=== PATIENT | female | born 1975 | race Caucasian/White ===

== ENCOUNTER 2016-08-21 16:24 | Inpatient (IN) ==
[2016-08-21] MEDS ORDERED: NS 1,000 ML IV ONE ×5 (16:40→21:55)
--- NOTE | 2016-08-21 16:59 | PROVIDER DOCUMENTATION ---
HPI-General Adult - General Chief Complaint: High Blood Sugar Stated Complaint: elevated blood sugar Time Seen by Provider: 08/21/16 16:39 Source: patient Allergies/Adverse Reactions: Patient Allergies Allergy/AdvReac Type Severity Reaction Status Date / Time cefaclor [From [facility]] Allergy VOMITING Verified 07/25/16 16:15 Home Medications: Home Medication List Medication Instructions Recorded Confirmed Last Taken Type Hydrocodone/Acetaminophen [Purdin 1 each PO BID 08/21/16 08/21/16 08/21/16 History 10-325 Tablet] Subcutaneous Insulin Pump [Insulin 1 each MC DAILY 08/21/16 08/21/16 08/21/16 History Pump] - History of Present Illness -Gen Adult Nature of Presenting Problems: Pt. is 40 yof that is a type I diabetic and reports her blood sugar has been high. Pt. reports she hasn't eaten since yesterday and that her glucometer read greater than 600. Pt. has an insulin pump and is still having trouble controlling her sugar. Pt. reports increased thirst and urination. Pt. reports this morning she was nauseated and dry heaving but didn't have anything to throw up. Pt. appears to be in mild distress and states her back hurts but reports chronic back pain for years. Pt. denies any other symptoms at time of exam. Location of Pain/Injury: reports: back. denies: head, face, mouth, neck, chest , upper extremity, hand(s), abdomen, pelvis, genitalia, lower extremity, feet, upper body, lower body, generalized Pain Radiation: reports: no radiation Quality of Pain: reports: aching. denies: burning, cramping, dull, fullness, indigestion, pressure, sharp, stabbing, tearing, throbbing, tightness Severity: reports: moderate. denies: mild, severe Onset/Duration: reports: gradual, other (Mulitple years) Timing: reports: still present. denies: improving, gone now, resolved prior to arrival, intermittent, constant, changing over time, getting worse Context/Activities at Onset: reports: none. denies: recent emotional stress, recent physical stress, recent trauma history, possible bad food, cold exposure , out of country travel Modifying Factors: improves with: nothing Associated Symptoms: reports: back/neck pain, fatigue, nausea, vomiting. denies : anxiety, arm pain, chest pain, constipation, cough, diaphoresis, diarrhea, dizziness, EENT symptoms, fever/chills, genitourinary problems, headaches, heartburn, joint pain, loss of appetite, malaise, muscle aches, sinus congestion /drainage, rash, seizure, shortness of breath, sensory/motor loss, pain with inspiration, swelling/mass in abdomen, syncope, weakness, trouble walking Similar Symptoms Previously?: Yes Recently seen or treated by another doctor?: No Review of Systems - Adult - REVIEW OF SYSTEMS - ADULT Constitutional: reports: fatique. denies: see HPI, chills, fever, night sweats Eyes: reports: see HPI. denies: discharge, blurred vision, double vision Ears, Nose, Mouth & Throat: reports: see HPI. denies: ear discharge, ear pain, hearing loss, sinus problem, nose pain, loose teeth, mouth/dental pain, throat pain, throat swelling Cardiovascular: reports: see HPI. denies: chest pain, irregular heart rate, orthopnea, palpitations, syncope Respiratory: reports: see HPI. denies: chronic cough, cough, dyspnea on exertion, hemoptysis, pleurisy, shortness of breath, wheezing Gastrointestinal: reports: see HPI, nausea, vomiting. denies: abdominal pain, hematemesis, diarrhea, difficulty swallowing, frequent heartburn Genitourinary: reports: see HPI, frequency. denies: dysuria, discharge, hematuria, hesitency, urgency Musculoskeletal: reports: see HPI, back pain. denies: bone pain, joint pain, joint swelling, muscle aches, neck pain Integumentary: reports: see HPI. denies: hives, itching, rash, skin thickening Neurological: reports: see HPI. denies: ataxia, headache/migraines, numbness, paresthesia, seizure, tremors Psychiatric: reports: see HPI. denies: anxiety, depression, emotional problems , insomnia, panic attacks, suicidal thoughts Endocrine: reports: see HPI, increased thirst, polyuria. denies: goiter, cold intolerance, heat intolerance Past History - Adult - PAST MEDICAL HISTORY-ADULT Review of Records: reports: Old Records Reviewed, Nursing Assessment Review, Medications Reviewed, Social history reviewed & non-contributory. - IMMUNIZATION STATUS Childhood Immunizations: See Nurse Assessment Flu Vaccine: See Nurse Assessment - FAMILY HISTORY Family History: reviewed, not pertinent - SOCIAL HISTORY Smoking: denies, cigarettes, greater than 1 pack/day Provider spent 3-5 mins advising pt. on dangers of tobacco.: Discussed the need to stop smoking. Physical Exam-General - PHYSICAL EXAM-ADULT Initial Vital Signs Reviewed: Yes - CONSTITUTIONAL General Appearance: alert, moderate distress, thin, lethargic. negative: obese , anxious, slow to respond, obtunded, combative - EYES Eyes: PERRL/EOMI, pink conjunctivae. negative: conjuctival exudate, scleral icterus, subconjunctival hemorrhage - HEAD, EARS, NOSE, MOUTH & THROAT HENMT: normocephalic/atraumatic, moist mucous membranes. negative: angioedema, frontal tenderness, maxillary tenderness - NECK Neck: non-tender, full range of motion, supple, normal inspection. negative: lymphadenopathy, trachial deviation, thyromegaly - RESPIRATORY Respiratory: lungs clear, normal breath sounds. negative: crackles, rales, rhonchi, stridor, wheezing - CARDIOVASCULAR Cardiovascular: regular rate, rhythm, no edema, no JVD, no murmur, tachycardia. negative: extra beats, friction rub, irregularly irregular - CHEST (BREASTS) Chest/Breast: deferred - GASTROINTESTINAL (ABDOMEN) Abdominal Exam: soft, abnormal bowel sounds (hypoactive). negative: distended, guarding, rigid, rebound, tenderness, hernia, mass - GENITOURINARY Female Genitalia/Pelvic Exam: deferred Rectal Exam: deferred Hemoccult Exam: deferred - LYMPHATIC Lymphatic: no adenopathy. negative: axilla node tender, cervical node tenderness - MUSCULOSKELETAL Back Exam: normal inspection, no CVA tenderness, no vertebral tenderness, muscle spasm. negative: decreased range of motion, ecchymosis, swelling Extremity: normal range of motion, non-tender, normal gait, normal inspection. negative: deformity, erythema, inflammation, swelling, tenderness Peripheral Pulses: radial (R): 2+, radial (L): 2+ - SKIN Integumentary: normal color, normal turgor, warm/dry. negative: cyanosis, diaphoresis, ecchymosis, erythema, jaundice, mottled, pallor, petechiae, purpura , rash, swelling, tenderness - NEUROLOGIC Neurologic: grossly normal, no motor/sensory deficits. negative: aphasia, facial droop, focal weakness, motor weakness, sensory deficit - PSYCHIATRIC Psych/Mental Status: normal mood/affect, normal thought content, normal thought process, oriented x 3. negative: anxious, paranoid, tearful Progress - PLAN OF CARE/RESULTS Progress/Plan/Lab Results: Discussed results and plan of care with patient. Patient agrees with plan and verbalizes understanding. Vital Signs Temp Pulse Resp BP Pulse Ox 08/21/16 16:29 97.6 F 119 H 18 145/83 99 cefaclor [From [facility]] Allergy (Verified 07/25/16 16:15) VOMITING Hydrocodone/Acetaminophen [Purdin 10-325 Tablet] 1 each PO BID 08/21/16 Subcutaneous Insulin Pump [Insulin Pump] 1 each MC DAILY 08/21/16 Laboratory 08/21/16 08/21/16 08/21/16 17:30 17:30 17:10 WBC 39.78 H RBC 4.95 Hgb 15.6 Hct 47.7 H MCV 96.4 MCH 31.5 H MCHC 32.7 L RDW Std Deviation 14.7 H Plt Count 589 H MPV 10.0 Immature Gran % (Auto) 2.2 H Neut % (Auto) 68.2 Lymph % (Auto) 21.7 [place] % (Auto) 6.4 Eos % (Auto) 0.4 Baso % (Auto) 1.1 H Immature Gran # (Auto) 0.89 H Neut # (Auto) 27.13 H Lymph # (Auto) 8.63 H [place] # (Auto) 2.56 H Eos # (Auto) 0.15 Baso # (Auto) 0.42 H Segmented Neutrophils 74 Band Neutrophils 2 H Lymphocytes 22 Eosinophils 1 Nucleated RBCs 7 H Pathologist Review Atypical Lymphocytes 1.0 Specimen Type ARTERIAL Sample Site R RADIAL pH 6.96 L* pCO2 17 L* pO2 118 H HCO3 4.0 L Base Excess -26.7 L Oxyhemoglobin 95.4 ABG O2 Sat (Calculated) 21.7 ABG O2 Saturation 99.7 ABG Carboxyhemoglobin 2.30 ABG Methemoglobin 2.0 H Gabriel Test YES A-a O2 Difference 10.0 Total Hemoglobin 16.1 Lactate 5.40 H* Blood Gas Modality ROOM AIR FiO2 % 21.0 Sodium 130 L Potassium 6.2 H* Chloride 85 L Carbon Dioxide 6 L Anion Gap 39 BUN 34 H Creatinine 1.5 H Estimated GFR/1.73 m2 39 BUN/Creatinine Ratio 23 Glucose 726 H* Calculated Osmolality 303 Calcium 9.9 Total Bilirubin 0.27 AST 31 H ALT 26 Alkaline Phosphatase 143 H Total Protein 8.1 Albumin 4.5 Globulin 3.6 Albumin/Globulin Ratio 1.3 Acetone Level SMALL A Orders Category Date Time Status ED: Urine Bedside ORDERED Care 08/21/16 16:39 Active Saline Loc NOW Care 08/21/16 16:39 Active ABG [RESP] Routine Lab 08/21/16 17:10 Completed ACETONE SERUM [CHEM] Stat Lab 08/21/16 17:30 Completed BLOOD CULTURE [BLDCUL] Stat Lab 08/21/16 18:10 Received CBC WITH ELECTRONIC DIFF [HEME] Stat Lab 08/21/16 17:30 Completed COMPREHENSIVE METABOLIC PANEL [CHEM] Stat Lab 08/21/16 17:30 Completed URINALYSIS W/POSS RFLX CULT [URINALYSIS] Stat Lab 08/21/16 16:39 Uncollected URINE DRUG SCREEN Stat Lab 08/21/16 16:52 Uncollected 0.9% Sodium Chloride Inj [Ns] 1,000 ml Med 08/21/16 16:40 Discontinued IV 999 mls/hr 0.9% Sodium Chloride Inj [Ns] 1,000 ml Med 08/21/16 16:52 Discontinued IV 999 mls/hr 0.9% Sodium Chloride Inj [Ns] 100 ml Med 08/21/16 18:30 Active Insulin Human Regular [Humulin R] 100 unit IV Per Protocol Insulin Human Regular [Humulin R] Med 08/21/16 17:33 Discontinued 10 unit IV NOW ONE EKG [EKG] Stat Ther 08/21/16 18:23 Ordered Laboratory Tests 08/21/16 08/21/16 08/21/16 17:10 17:30 17:30 WBC 39.78 H RBC 4.95 Hgb 15.6 Hct 47.7 H MCV 96.4 MCH 31.5 H MCHC 32.7 L RDW Std Deviation 14.7 H Plt Count 589 H MPV 10.0 Immature Gran % (Auto) 2.2 H Neut % (Auto) 68.2 Lymph % (Auto) 21.7 [place] % (Auto) 6.4 Eos % (Auto) 0.4 Baso % (Auto) 1.1 H Immature Gran # (Auto) 0.89 H Neut # (Auto) 27.13 H Lymph # (Auto) 8.63 H [place] # (Auto) 2.56 H Eos # (Auto) 0.15 Baso # (Auto) 0.42 H Segmented Neutrophils 74 Band Neutrophils 2 H Lymphocytes 22 Eosinophils 1 Nucleated RBCs 7 H Pathologist Review Atypical Lymphocytes 1.0 Specimen Type ARTERIAL Sample Site R RADIAL pH 6.96 L* pCO2 17 L* pO2 118 H HCO3 4.0 L Base Excess -26.7 L Oxyhemoglobin 95.4 ABG O2 Sat (Calculated) 21.7 ABG O2 Saturation 99.7 ABG Carboxyhemoglobin 2.30 ABG Methemoglobin 2.0 H Gabriel Test YES A-a O2 Difference 10.0 Total Hemoglobin 16.1 Lactate 5.40 H* Blood Gas Modality ROOM AIR FiO2 % 21.0 Sodium 130 L Potassium 6.2 H* Chloride 85 L Carbon Dioxide 6 L Anion Gap 39 BUN 34 H Creatinine 1.5 H Estimated GFR/1.73 m2 39 BUN/Creatinine Ratio 23 Glucose 726 H* Calculated Osmolality 303 Calcium 9.9 Total Bilirubin 0.27 AST 31 H ALT 26 Alkaline Phosphatase 143 H Total Protein 8.1 Albumin 4.5 Globulin 3.6 Albumin/Globulin Ratio 1.3 Acetone Level SMALL A - EKG 1 Time of EKG reading by physician:: 18:43 EKG Read and Signed by:: Rk Stokes EKG Interpretation (*Must complete 3 of following elements*): Abnormal Rate: 125 Rhythm: Sinus Tach Comments: Peaked T-Waves - CONSULTS/PCP/HOSPITALIST Notification #1 *Consult/PCP/Hospitalist*: Dr. Leach Time Discussed: 17:40 Reason/Comments: Admission Consult Disposition: other (States do not call him until a complete workup has been done. He will be glad to admit after the workup is complete.) #2 Consult: Dr. Cardoza Time Discussed: 19:59 Reason/Comments: Admission Consult Disposition: Admit Departure - Departure Time of Disposition Order: 17:35 DIAGNOSIS: DKA (diabetic ketoacidoses) Qualifiers: Diabetes mellitus type: type 1 Diabetes mellitus complication detail: without coma Qualified Code(s): E10.10 - Type 1 diabetes mellitus with ketoacidosis without coma Leukocytosis Qualifiers: Leukocytosis type: unspecified Qualified Code(s): D72.829 - Elevated white blood cell count, unspecified Disposition: ADMITTED INPATIENT 09 Certified Medical Emergency: Emergent Condition: Serious Referrals: Radha Atkinson MD [Primary Care Provider] - Attestation - Physician/ TARUN Attestation Patient care was provided by Advanced Practice Provider:: Yes Advanced Practice Provider:: Jasmin Rios Advanced Practice Provider documentation review:: The Mid-level provider documentation, treatment plan and medical decision making was reviewed by the physician who agrees with all treatment and medical decision making by the MLP.
[2016-08-21 17:21] LABS: ALLEN TEST YES; BE -26.7 mmoll (-3.0-3.0); BLOOD TYPE ARTERIAL; DRAW SITE R RADIAL; O2(CT) 21.7 mL/dL (15.0-23.0); PO2(98.6) 118 mmHg (60-100); SAMPLE BLOOD; SAO2 99.7 % (95.0-100.0); THB 16.1 g/dL (11.5-17.4)
[2016-08-21 17:23] LABS: MODALITY ROOM AIR
[2016-08-21 17:25] LABS: PCO2(98.6) 17 mmHg (35-45); pH(98.6) 6.96 (7.35-7.45)
[2016-08-21] MEDS ORDERED: HUMULIN R IV ONE ×2 (17:33→22:43)
[2016-08-21 17:58] LABS: BASO% 1.1 % (0.0-0.8); EOS# 0.15 X1000 (0.0-0.7); EOS% 0.4 % (0.0-10.0); HEMATOCRIT 47.7 % (37.0-47.0); HEMOGLOBIN 15.6 g/dL (12.0-16.0); IMM GRAN# 0.89 X1000 (0.0-0.04); IMM GRAN% 2.2 % (0.0-0.5); LYMPH# 8.63 X1000 (1.2-3.4); LYMPH% 21.7 % (20.5-51.1); MANUAL DIFF NEEDED? YES; MCH 31.5 PG (27-31); MCHC 32.7 g/dL (33-37); MCV 96.4 FL (81-99); MONO# 2.56 X1000 (0.11-0.59); MONO% 6.4 % (1.7-9.3); NEUT% 68.2 % (42.2-75.2); PLT 589 X1000 (130-400); RBC 4.95 XMIL (4.2-5.4)
[2016-08-21 18:03] LABS: ACETONE SERUM SMALL (NEGATIVE)
[2016-08-21 18:14] LABS: BANDS 2 % (0-1); EOS 1 % (1-10); LYMPHS 22 % (21-51); NRBC 7 % (0-0)
[2016-08-21 18:18] LABS: AGAP 39; ALBUMIN 4.5 g/dL (3.5-5.0); ALKALINE PHOSPHATASE 143 U/L (32-104); BUN 34 mg/dL (8-22); CALCIUM 9.9 mg/dL (8.8-10.2); CHLORIDE 85 mmol/L (98-107); COSMO 303; GOT 31 U/L (10-30); GPT 26 U/L (10-36); SODIUM 130 mmol/L (136-145); TCO2 6 mmol/L (25-35); TOTAL BILIRUBIN 0.27 mg/dL (0.20-1.00); TOTAL PROTEIN 8.1 g/dL (6.3-8.3)
[2016-08-21 18:21] LABS: POTASSIUM 6.2 mmol/L (3.5-5.1)
[2016-08-21] MEDS: HUMULIN R 100 UNIT in NS 100 ML IV SCH ×3 (18:50→21:25)
[2016-08-21 20:06] LABS: MAGNESIUM 2.7 mg/dL (1.5-2.7)
[2016-08-21 20:32] LABS: ALLEN TEST YES; BE -19.8 mmoll (-3.0-3.0); BLOOD TYPE ARTERIAL; DRAW SITE R RADIAL; METHB 1.7 % (0.0-1.5); O2(CT) 18.8 mL/dL (15.0-23.0); PO2(98.6) 79 mmHg (60-100); SAMPLE BLOOD; SAO2 99.1 % (95.0-100.0); THB 14.1 g/dL (11.5-17.4)
[2016-08-21 20:35] LABS: MODALITY ROOM AIR; PCO2(98.6) 19 mmHg (35-45); pH(98.6) 7.16 (7.35-7.45)
[2016-08-21 20:58] LABS: URINE CULTURE NEEDED? NO; URINE MICRO REVIEW NEEDED? NO; URINE SOURCE CATH
[2016-08-21 21:06] LABS: BILIRUBIN URINE NEGATIVE (NEGATIVE); BLOOD URINE SMALL (NEGATIVE); COLOR YELLOW; GLUCOSE URINE >1000 mg/dL (NEGATIVE); LEUKOCYTES URINE NEGATIVE (NEGATIVE); NITRITE URINE NEGATIVE (NEGATIVE); PROTEIN URINE 30 mg/dL (NEGATIVE); TURBIDITY URINE CLEAR (CLEAR); UR EPITHELIAL CELLS <10 /HPF (<10); URINE BACTERIA NEGATIVE /HPF; URINE RBC <10 /HPF (<10); URINE WBC <10 /HPF (<10); UROBILINOGEN URINE NORMAL (NORMAL)
[2016-08-21 21:15] LABS: UR AMPHETAMINES QUAL NONE DETECTED (NONE DETECT); UR BARBITUATES QUAL PRESUMPTIVE POSITIVE (NONE DETECT); UR BENZODIAZEPIN QUAL NONE DETECTED (NONE DETECT); UR CANNABINOIDS QUAL NONE DETECTED (NONE DETECT); UR COCAINE QUAL NONE DETECTED (NONE DETECT); UR METHADONE QUAL NONE DETECTED (NONE DETECT); UR OPIATES QUAL NONE DETECTED (NONE DETECT); UR OXYCODONE QUAL NONE DETECTED (NONE DETECT); UR PCP QUAL NONE DETECTED (NONE DETECT)
[2016-08-21] MEDS ORDERED: MORPHINE IV PRN (21:56)
[2016-08-21] MEDS ORDERED: TYLENOL PO PRN (21:56)
[2016-08-21] MEDS ORDERED: ZOFRAN IV PRN (21:56)
[2016-08-21 22:17] LABS: HEMOGLOBIN A1C 8.2 % (4.8-6.0)
[2016-08-21] MEDS: SODIUM CHLORIDE 0.9% INJ SCH (22:40)
[2016-08-21] MEDS: PROTONIX IV SCH (22:40)
[2016-08-21] MEDS ORDERED: POTASSIUM CHLORIDE 40 MEQ in NS 250 ML IV PRN (22:43)
[2016-08-21] MEDS ORDERED: D50W SYRINGE IV PRN (22:43)
[2016-08-21] MEDS ORDERED: MAGNESIUM SULFATE 2 GM/S.W.I. 50 ML IV PRN (22:43)
[2016-08-21] MEDS ORDERED: HUMULIN R 100 UNIT in NS 99 ML IV SCH (22:43)
[2016-08-21] MEDS ORDERED: SODIUM PHOSPHATE 30 MMOL in D5W 250 ML IV PRN (22:43)
[2016-08-22] MEDS: NS 1,000 ML IV SCH ×8 (00:08→23:07)
[2016-08-22] MEDS: D5 NS 1,000 ML IV SCH ×3 (00:11→16:47)
[2016-08-22 00:31] LABS: AGAP 23; BUN 26 mg/dL (8-22); CALCIUM 7.9 mg/dL (8.8-10.2); CHLORIDE 104 mmol/L (98-107); COSMO 287; POTASSIUM 4.7 mmol/L (3.5-5.1); SODIUM 138 mmol/L (136-145); TCO2 11 mmol/L (25-35)
[2016-08-22] MEDS: POTASSIUM CHLORIDE 20 MEQ in NS 100 ML IV PRN ×3 (00:48→23:42)
--- NOTE | 2016-08-22 02:09 | HISTORY AND PHYSICAL ---
PRIMARY CARE PROVIDER: DATE AND TIME OF HISTORY AND PHYSICAL: August 21, 2016 at 2045. CHIEF COMPLAINT: Elevated blood sugar. HISTORY OF PRESENT ILLNESS: Ms. Phani Murillo is a 40-year-old female with a history of diabetes mellitus type 1 who currently receives insulin therapy via an insulin pump and multiple sclerosis. She reports that her sugars have been elevated for the past few days starting yesterday. She has no appetite and has not eaten anything since yesterday afternoon. Patient reports this morning that she woke up feeling worse. She did have some nausea, vomiting, as well as her fingerstick blood sugar on her glucometer at home was greater than 600. Her father, who is at bedside, also reported that prior to the patient's arrival to the hospital that she did have some period of confusion as well. Upon arrival to the ER, the patient's serum glucose was 726, bicarbonate was 6, anion gap was 39. Her blood gases did show a pH of 6.9 with a CO2 of 17 and a bicarbonate of 4. She also did have an elevated white blood cell count of 39.78. The patient was given 10 units of insulin IV push as well as placed on an insulin drip in the ER and the DKA protocol was implemented. Since her arrival to the ER, upon my examination the patient was alert and oriented to person, place, time, and situation. She also reports that she does feel better than she did upon her arrival. She denies any headache or dizziness, chest pain, shortness of breath, abdominal pain, diarrhea, dysuria, though does report increased urinary frequency. She also reported increased thirst as well. She denies any pain, numbness or tingling in her extremities though she does report some low back pain though this is not of new onset and is chronic for which she sees a pain clinic for and receives Rodanthe as needed for pain. She also denies any cough, fever, or chills. At this time, the patient will be admitted to the ICU for further treatment of her DKA. REVIEW OF SYSTEMS: A 14-point review of systems was conducted with the patient and all were negative except for pertinent positives mentioned in above HPI. PAST MEDICAL HISTORY: 1. Diabetes mellitus type 1, currently on insulin pump therapy. 2. Fibromyalgia. 3. Multiple sclerosis. 4. Chronic low back pain. PAST SURGICAL HISTORY: 1. Surgery on bilateral hands for carpal tunnel. 2. Bilateral arthroscopies of her knees. SOCIAL HISTORY: Patient reports that she is still a current everyday smoker and smokes approximately a half a pack of cigarettes per day. She denies any alcohol or illicit drug use. FAMILY HISTORY: Positive for heart disease in her father with recent UT approximately 3 years. Her mother also has a history of diabetes mellitus type 1. ALLERGIES: Patient reports allergies to cefaclor though reports this only makes her nauseated. No other allergic symptoms reported. HOME MEDICATIONS: 1. Subcutaneous insulin pump as directed. 2. Rodanthe 10 one tablet p.o. twice daily for pain. DIAGNOSTIC DATA: Laboratory results: White blood cell count 39.7, hemoglobin 15.6, hematocrit 47.7, platelet count 589. Sodium 130. Potassium 6.2. Chloride 85. Bicarbonate 6. Anion gap is 39. BUN 34. Creatinine 1.5. GFR 39. Glucose 726. Hemoglobin A1c 8.2. Calcium 9.9. Phosphorus 8.2. Magnesium 2.7. Total bilirubin of 0.27. AST 31. ALT 26. Alkaline phosphatase 143. Arterial blood gases were obtained on room air: pH of 6.96, pCO2 of 17, pO2 118, HCO3 was 4, base excess was negative 26.7, O2 saturation was 99.7, plasma lactate was 5.4. Urinalysis was obtained, was positive for protein, greater than 1000 glucose, small ketones, and a small amount of blood though it was otherwise within normal limits. A urine drug screen was positive for barbiturates. EKG showed sinus tachycardia with a short P-R, with frequent premature ventricular complexes and a right bundle-branch block. Heart rate was 160, QTc was 587. Pending diagnostic studies at this time are chest x-ray and blood cultures. PHYSICAL EXAMINATION: VITAL SIGNS: Temperature 97, heart rate 117, respirations 15, blood pressure is 127/90, oxygen saturation is 99% room air. GENERAL: Ms. Murillo is an ill-appearing 40-year-old female who is resting in the ER stretcher. Upon my exam she was not in any acute distress. She was awake, alert, and able to answer all questions appropriately. HEENT: Head is atraumatic, normocephalic. Pupils are equal, round, reactive to light, are 3 mm bilaterally and brisk. Subconjunctivae are pink. Oral mucosa was slightly dry. NECK: Supple. Trachea is midline. CARDIOVASCULAR: Patient has a normal S1, S2. No murmurs, gallops, or rubs appreciated with a tachycardic rate that is regular. PULMONARY: Patient has symmetrical chest expansion bilaterally. Lung sounds are clear to auscultation in bilateral full carrizales. ABDOMEN: Soft, nontender, nondistended. Bowel sounds are present in all 4 quadrants. EXTREMITIES: No cyanosis, clubbing, or edema noted. Pulse, motor, and sensory were intact in all extremities as well. Pedal pulses as well as radial pulses were 3 plus bilaterally. INTEGUMENTARY: The patient's skin color is slightly pale, is warm, dry, and intact. No lesions or sores noted. NEUROLOGICAL: Patient is alert and oriented to person, place, time, situation. Cranial nerves II through XII are grossly intact. ASSESSMENT AND PLAN: 1. Diabetic ketoacidosis. For this, we will implement the DKA protocol. The patient will be given a total of 3 L normal saline bolus and we will continue normal saline at 250 mL per hour for volume depletion. We will do q.4 hour BMP, phosphorus, and magnesium as well as arterial blood gases, and we will monitor her respiratory and cardiovascular status closely and also closely monitor her electrolytes. She has been placed on the insulin drip per protocol as well. 2. Nausea, vomiting. For this, we will give the patient Zofran as needed. 3. Leukocytosis. This could be reactive though we have obtained blood cultures and we will place her on a broad spectrum antibiotic until blood culture results have returned and continue to rule out any other etiology. 4. Acute kidney injury. We will continue with above mentioned fluid resuscitation per number 1. Avoid nephrotoxic medications and renally dose medications as necessary and repeat a BMP in the morning. 5. Chronic pain. Given that the patient has had some nausea and vomiting, we will hold her oral Rodanthe at this time and we will give her morphine 2 mg q.3 hours as needed for pain. Patient will be placed in the ICU. We will do q.1 hour vitals, do strict intake and output. She will have q.1 hour fingersticks, q.2 hour neurological checks. She will be on diabetic clear liquids diet. We will repeat her CBC in the morning. DVT prophylaxis will be provided with SCDs. GI prophylaxis will be provided with Protonix 40 mg IV q.24 hours and we will closely monitor her condition. Further orders and recommendations pending hospital course, diagnostic studies, and physician evaluation. TIME: Critical care time with this patient was approximately 45 minutes. Dictated by LESLY Sutton for Misha Cardoza MD
[2016-08-22] MEDS: LEVAQUIN 750 MG in NS 150 ML IV SCH (03:07)
[2016-08-22 04:43] LABS: ALLEN TEST YES; BE -11.4 mmoll (-3.0-3.0); BLOOD TYPE ARTERIAL; DRAW SITE R RADIAL; METHB 1.6 % (0.0-1.5); O2(CT) 20.9 mL/dL (15.0-23.0); PCO2(98.6) 27 mmHg (35-45); PO2(98.6) 92 mmHg (60-100); SAMPLE BLOOD; SAO2 99.6 % (95.0-100.0); THB 15.4 g/dL (11.5-17.4)
[2016-08-22 04:44] LABS: MODALITY ROOM AIR
[2016-08-22 05:38] LABS: BASO% 0.3 % (0.0-0.8); EOS# 0.01 X1000 (0.0-0.7); HEMATOCRIT 37.3 % (37.0-47.0); HEMOGLOBIN 12.7 g/dL (12.0-16.0); IMM GRAN# 0.37 X1000 (0.0-0.04); IMM GRAN% 1.3 % (0.0-0.5); LYMPH% 21.4 % (20.5-51.1); MANUAL DIFF NEEDED? YES; MCH 31.4 PG (27-31); MCV 92.1 FL (81-99); MONO# 2.18 X1000 (0.11-0.59); MONO% 7.5 % (1.7-9.3); MPV 9.7 FL (7.4-10.4); NEUT% 69.5 % (42.2-75.2); PLT 409 X1000 (130-400); RBC 4.05 XMIL (4.2-5.4)
--- NOTE | 2016-08-22 05:50 | EKG Report ---
Test Performed on : 08/21/2016 6:56:33 PM Test Reason : Elevated potassium Blood Pressure : / mmHG Vent. Rate : 160 BPM Atrial Rate : 125 BPM P-R Int : 094 ms QRS Dur : 126 ms QT Int : 360 ms P-R-T Axes : 075 090 050 degrees QTc Int : 587 ms Sinus tachycardia. with short OH with frequent premature ventricular complexes. Right bundle branch block Cannot rule out Inferior infarct , age undetermined Abnormal ECG No previous ECGs available Unconfirmed Result
[2016-08-22 05:55] LABS: MAGNESIUM 1.9 mg/dL (1.5-2.7)
--- NOTE | 2016-08-22 06:27 | Diag Imaging Result Document ---
PROCEDURE NAME: CHEST-PORTABLE - 08/22/2016 PORTABLE CHEST: COMPARISON: No comparison films. FINDINGS: The lungs are well expanded. The heart is not enlarged. The vessels are not distended. No consolidation. No pleural effusions identified. IMPRESSION: Negative chest.
[2016-08-22 06:30] LABS: AGAP 20; BUN 17 mg/dL (8-22); CHLORIDE 107 mmol/L (98-107); COSMO 286; POTASSIUM 4.4 mmol/L (3.5-5.1); SODIUM 139 mmol/L (136-145); TCO2 12 mmol/L (25-35)
--- NOTE | 2016-08-22 06:41 | Diag Imaging Result Document ---
PROCEDURE NAME: HEAD W/O CONTRAST - 08/22/2016 CT BRAIN WITHOUT CONTRAST: TECHNIQUE: Dose-reduction protocol. FINDINGS: No parenchymal hemorrhage. No epidural or subdural hematoma. No subarachnoid hemorrhage. There are chronic microvascular ischemic changes most pronounced in the parietal lobes. No hydrocephalus. No mass identified on this noncontrasted study. No sinus opacification. No air fluid levels. IMPRESSION: 1. No hemorrhage. 2. There are at least moderate chronic microvascular ischemic changes primarily in the parietal lobes. A preliminary report was given at 6:29 a.m.
[2016-08-22 07:10] LABS: BANDS 4 % (0-1); LYMPHS 26 % (21-51); MONO 12 % (1-9)
[2016-08-22 09:09] LABS: ALLEN TEST YES; BE -7.8 mmoll (-3.0-3.0); BLOOD TYPE ARTERIAL; DRAW SITE R RADIAL; METHB 1.9 % (0.0-1.5); PCO2(98.6) 27 mmHg (35-45); PO2(98.6) 93 mmHg (60-100); SAMPLE BLOOD; SAO2 99.1 % (95.0-100.0); THB 11.8 g/dL (11.5-17.4); pH(98.6) 7.38 (7.35-7.45)
[2016-08-22 09:42] LABS: MAGNESIUM 1.9 mg/dL (1.5-2.7)
[2016-08-22 10:01] LABS: AGAP 15; BUN 14 mg/dL (8-22); CALCIUM 7.9 mg/dL (8.8-10.2); CHLORIDE 110 mmol/L (98-107); COSMO 288; POTASSIUM 4.4 mmol/L (3.5-5.1); SODIUM 141 mmol/L (136-145); TCO2 16 mmol/L (25-35)
--- NOTE | 2016-08-22 11:49 | PROGRESS NOTE ---
DATE: 08/22/2016 SUBJECTIVE: The patient is feeling much better. No nausea, no vomiting. She does not appear to be very well versed with her insulin pump. She could not tell him what her basal rate was that she was using at home. Father was at the bedside. All questions were invited and entertained. OBJECTIVE: Vital signs: Blood pressure 133/84, pulse of 105, respirations of 15, temperature 97.9 degrees, T-max 97.8 degrees, satting 100% on room air. General appearance: Well- developed, thin white female in no acute distress. HEENT: Anicteric sclerae. Clear conjunctivae. Neck: Supple. No JVD. No bruit. Cardiovascular: S1, S2. Normal rate and rhythm. No murmur, rubs, or gallops. Pulmonary: Clear to auscultation bilaterally. GI: Soft, nontender, nondistended. Normoactive bowel sounds. Musculoskeletal: No clubbing, cyanosis, or edema. LABORATORY AND X-RAYS: Her white count 29, hemoglobin 12.7, hematocrit of 37.3, platelets of 409. Chemistry: Sodium 141, potassium 4.4, chloride 110, bicarbonate 16. BUN of 14, creatinine 0.8. Glucose of 208. A CAT scan of the brain was negative for any acute process. Chest x-ray was normal. ASSESSMENT AND PLAN: This is a 40-year-old, white female with history of type 1 diabetes and multiple sclerosis, who presented to the emergency room with nausea and vomiting. She was found to have diabetic ketoacidosis. 1. Diabetic ketoacidosis: The patient is on diabetic ketoacidotic protocol. Her gap is still wide. Will continue to monitor her gap and we will continue insulin drips. Start the patient on a diet since she is tolerating the diet well. We will consult diabetic education to teach her how to use the insulin pump appropriately. There may be a disconnect between the patient able to use the insulin and the basal rate as she is supposed to. 2. Electrolyte abnormality: We will continue to replete her electrolytes. 3. Leukocytosis: Probably respond to her acute illness due to diabetic ketoacidosis. 4. Deep vein thrombosis prophylaxis: We will start the patient on Lovenox. 5. Code status: The patient is a full code.
[2016-08-22] MEDS: NICODERM PATCH TD SCH (14:34)
[2016-08-22 15:37] LABS: AGAP 13; BUN 12 mg/dL (8-22); CHLORIDE 106 mmol/L (98-107); COSMO 280; POTASSIUM 3.8 mmol/L (3.5-5.1); SODIUM 137 mmol/L (136-145); TCO2 18 mmol/L (25-35)
[2016-08-22 17:36] LABS: AGAP 14; BUN 10 mg/dL (8-22); CALCIUM 7.9 mg/dL (8.8-10.2); CHLORIDE 106 mmol/L (98-107); COSMO 281; POTASSIUM 3.6 mmol/L (3.5-5.1); SODIUM 139 mmol/L (136-145); TCO2 19 mmol/L (25-35)
[2016-08-22] MEDS: PROTONIX IV SCH (22:06)
[2016-08-22 22:11] LABS: AGAP 16; BUN 8 mg/dL (8-22); CALCIUM 7.8 mg/dL (8.8-10.2); CHLORIDE 107 mmol/L (98-107); COSMO 285; POTASSIUM 3.5 mmol/L (3.5-5.1); SODIUM 141 mmol/L (136-145); TCO2 18 mmol/L (25-35)
[2016-08-22 22:21] LABS: MAGNESIUM 1.9 mg/dL (1.5-2.7)
[2016-08-23] MEDS ORDERED: NS 1,000 ML ONE (00:36)
[2016-08-23] MEDS: NS 1,000 ML IV SCH ×4 (00:38→20:48)
[2016-08-23] MEDS: HUMULIN R SUBQ SCH ×6 (00:40→20:48)
[2016-08-23] MEDS: LEVAQUIN 750 MG in NS 150 ML IV SCH (02:13)
[2016-08-23 06:28] LABS: MAGNESIUM 1.8 mg/dL (1.5-2.7)
[2016-08-23 06:31] LABS: AGAP 12; BUN 4 mg/dL (8-22); CALCIUM 7.7 mg/dL (8.8-10.2); CHLORIDE 111 mmol/L (98-107); COSMO 284; POTASSIUM 3.4 mmol/L (3.5-5.1); SODIUM 143 mmol/L (136-145); TCO2 20 mmol/L (25-35)
[2016-08-23 07:33] LABS: BASO% 0.2 % (0.0-0.8); EOS# 0.07 X1000 (0.0-0.7); EOS% 0.4 % (0.0-10.0); HEMATOCRIT 33.2 % (37.0-47.0); HEMOGLOBIN 11.5 g/dL (12.0-16.0); IMM GRAN# 0.17 X1000 (0.0-0.04); LYMPH# 6.26 X1000 (1.2-3.4); LYMPH% 36.1 % (20.5-51.1); MANUAL DIFF NEEDED? YES; MCH 31.4 PG (27-31); MCHC 34.6 g/dL (33-37); MCV 90.7 FL (81-99); MONO# 1.55 X1000 (0.11-0.59); MONO% 8.9 % (1.7-9.3); MPV 9.6 FL (7.4-10.4); NEUT% 53.4 % (42.2-75.2); PLT 277 X1000 (130-400); RBC 3.66 XMIL (4.2-5.4)
[2016-08-23 07:58] LABS: BANDS 6 % (0-1); LYMPHS 38 % (21-51); MONO 8 % (1-9)
[2016-08-23] MEDS: LOVENOX SUBQ SCH (09:14)
[2016-08-23] MEDS: NICODERM PATCH TD SCH (09:14)
--- NOTE | 2016-08-23 12:39 | PROGRESS NOTE ---
DATE: 08/23/2016 SUBJECTIVE: The patient is doing well. She denies having any fever or chills. She denies having any nausea, vomiting, or diarrhea. Able to tolerate p.o. without any difficulty. No acute event reported by the overnight staff. OBJECTIVE: Vital signs: Blood pressure 137/80, pulse of 86, respirations 20, temperature 98.7 degrees, saturation of 99% on room air. General appearance: Well-developed, well-nourished white female in no acute distress. HEENT: Anicteric. Clear conjunctivae. Neck: Supple. No JVD. No bruit. Cardiovascular: S1 and S2. Normal rate and rhythm. No murmur, rubs, or gallops. Pulmonary: Clear to auscultation bilaterally. Gastrointestinal: Soft, nontender, nondistended. Normoactive bowel sounds. Musculoskeletal: No clubbing, cyanosis, or edema. LABORATORIES: White count 17, hemoglobin 11.5, hematocrit of 33.2, platelets 277,000. Chemistries: Sodium 143, potassium 3.4, chloride 111, bicarbonate 20, BUN 4, creatinine 0.6, glucose 128. ASSESSMENT AND PLAN: This is a 40-year-old white female with type 1 diabetes, admitted to the hospital for diabetic ketoacidosis. 1. Diabetic ketoacidosis. Her gap has been closed. She was transitioned to sliding scale insulin overnight. She needs her basal insulin at about 1.15 units/hour. We will restart her back on her basal insulin and we will continue sliding scale insulin per our protocol, but she can use her insulin pump to cover it. 2. Leukocytosis, probably secondary to demargination due to the acute illness of diabetic ketoacidosis, is much improved. We will keep the patient on the antibiotics for now. We will probably stop the antibiotics tomorrow if her culture remains negative. 3. Deep vein thrombosis prophylaxis. The patient is on Lovenox number. 4. Code Status: The patient is a full code. 5. Tobacco abuse. Education provided. 6. We transferred the patient to the medical floor.
[2016-08-23] MEDS: PATIENT'S OWN MED SUBQ SCH (13:42)
[2016-08-23] MEDS: NORCO-10 PO SCH ×2 (14:03→20:47)
[2016-08-23] MEDS: SODIUM CHLORIDE 0.9% INJ SCH (20:48)
[2016-08-23] MEDS: PROTONIX IV SCH ×2 (20:48→21:18)
[2016-08-24] MEDS: HUMULIN R SUBQ SCH ×5 (01:19→11:35)
[2016-08-24] MEDS: LEVAQUIN 750 MG in NS 150 ML IV SCH (03:55)
[2016-08-24 06:10] LABS: MANUAL DIFF NEEDED? NO
[2016-08-24 06:29] LABS: AGAP 14; BUN 7 mg/dL (8-22); CALCIUM 7.8 mg/dL (8.8-10.2); CHLORIDE 106 mmol/L (98-107); COSMO 282; POTASSIUM 4.2 mmol/L (3.5-5.1); SODIUM 140 mmol/L (136-145); TCO2 20 mmol/L (25-35)
[2016-08-24] MEDS: NS 1,000 ML IV SCH (06:30)
[2016-08-24 06:33] LABS: BASO% 0.4 % (0.0-0.8); EOS% 2.2 % (0.0-10.0); HEMATOCRIT 34.1 % (37.0-47.0); HEMOGLOBIN 11.5 g/dL (12.0-16.0); IMM GRAN# 0.03 X1000 (0.0-0.04); IMM GRAN% 0.3 % (0.0-0.5); LYMPH# 4.85 X1000 (1.2-3.4); LYMPH% 52.2 % (20.5-51.1); MCH 31.3 PG (27-31); MCHC 33.7 g/dL (33-37); MCV 92.9 FL (81-99); MONO# 0.83 X1000 (0.11-0.59); MONO% 8.9 % (1.7-9.3); MPV 9.7 FL (7.4-10.4); PLT 243 X1000 (130-400); RBC 3.67 XMIL (4.2-5.4)
[2016-08-24] MEDS: NORCO-10 PO SCH (08:37)
[2016-08-24] MEDS: NICODERM PATCH TD SCH (08:37)
[2016-08-24] MEDS: LOVENOX SUBQ SCH (08:38)
[2016-08-24] MEDS: PATIENT'S OWN MED SUBQ SCH (11:30)
[2016-08-24 12:26] VITALS: BP 154/86
--- NOTE | 2016-08-24 18:05 | DISCHARGE SUMMARY ---
ADMISSION DATE: 08/21/2016 DISCHARGE DATE: 08/24/2016 PRIMARY CARE PHYSICIAN: Dr. Radha Atkinson. DISCHARGE DIAGNOSES: 1. Diabetic ketoacidosis. 2. Type 1 diabetes. 3. Tobacco abuse. DISCHARGE MEDICATIONS: 1. Insulin pump, her basal rate is at 1.15 units/hour, and the patient has a scale that she follows where she calculates her carbs and gives her insulin p.r.n. accordingly before meal. 2. Continue her Breda. 3. Continue Adderall. 4. Continue her Neurontin. 5. Resume her Adderall. CONSULTATION: None. PROCEDURES: None. SIGNIFICANT LABORATORY AND IMAGING: On discharge her white count 9.29, hemoglobin 11.5, hematocrit of 34.1, platelets 243,000. Sodium 140, potassium 4.2, chloride 106, bicarb 20, BUN 7, creatinine 0.5, glucose 190. HOSPITAL COURSE: The patient is a 40-year-old, white female admitted to the hospital for hyperglycemia and diabetic ketoacidosis. The patient has had diabetes since she was 20 years old, and had been on the insulin pump recently. The patient stated that she started having polydipsia and polyuria and presented to the emergency room and was found to have a wide anion gap. She was admitted to the ICU and started on the insulin drip protocol for her diabetic ketoacidosis. The patient has remained in the ICU for about 36 hours. Her gap was closed. We transitioned her to the floor, where we continued her basal insulin and sliding scale insulin. We taught the patient how to use the insulin pump to make sure she is very well versed with the machine. So far she is doing well from that standpoint. We will discharge the patient home and resume her basal insulin as stated above and her bolus insulin per her intake. Overall she is doing well. We will discharge the patient back to home today. PHYSICAL EXAMINATION AT DISCHARGE: Vital Signs: Blood pressure 154/86, pulse of 84, respirations 16, temperature 98.6 degrees, saturation of 99% on room air. General appearance: Well developed, well nourished, white female in no acute distress. HEENT: Anicteric. Clear conjunctivae. Neck: Supple. No JVD. No bruits. Cardiovascular: S1, S2. Normal rate and rhythm. No murmur, rubs, or gallops. Pulmonary: Clear to auscultation bilaterally. GI: Soft, nontender, nondistended. Normoactive bowel sounds. Musculoskeletal: No clubbing, cyanosis, or edema. PLAN: We will discharge the patient home. CONDITION: Stable and improving. ACTIVITY: As tolerated. FOLLOWUP: The patient is to follow up with her PCP in 1-2 weeks. Total time discharging this patient is 35 minutes.
== END 2016-08-24 14:37 | disposition home or self-care (01) | DRG 638 ==
LOC: ED 16:24 → ICU 16:25 → 4N 08-23 09:58
PROVIDERS: ATTEND Internal Medicine
DX: E10.10 Type 1 diabetes mellitus with ketoacidosis without coma (principal); N17.9 Acute kidney failure, unspecified; G35 Multiple sclerosis; D72.829 Elevated white blood cell count, unspecified; M79.7 Fibromyalgia; F17.210 Nicotine dependence, cigarettes, uncomplicated; Z96.41 Presence of insulin pump (external) (internal); Z82.49 Family history of ischemic heart disease and other diseases of the circulatory system; Z83.3 Family history of diabetes mellitus
CPT/HCPCS: 70450; 71010; 80048; 80053; 81001; 81025; 82009; 82805; 82948; 83036; 83735; 84100; 85025; 87040; 93005; 94799; 96361; 96365; 96366; C9113; G0480; J1650; J2270; J3480; J7030; J7042; J7060; P9612; 80324; 80345; 80346; 80349; 80353; 80358; 80361; 80365; 83992; S0164

== ENCOUNTER 2016-08-27 16:51 | Inpatient (IN) ==
[2016-08-27 17:11] LABS: MANUAL DIFF NEEDED? NO
[2016-08-27 17:15] LABS: BASO% 0.7 % (0.0-0.8); EOS# 0.31 X1000 (0.0-0.7); EOS% 2.3 % (0.0-10.0); HEMATOCRIT 40.7 % (37.0-47.0); HEMOGLOBIN 13.4 g/dL (12.0-16.0); IMM GRAN# 0.14 X1000 (0.0-0.04); LYMPH# 4.82 X1000 (1.2-3.4); LYMPH% 35.7 % (20.5-51.1); MCH 31.3 PG (27-31); MCHC 32.9 g/dL (33-37); MCV 95.1 FL (81-99); MONO# 1.01 X1000 (0.11-0.59); MONO% 7.5 % (1.7-9.3); MPV 9.9 FL (7.4-10.4); NEUT% 52.8 % (42.2-75.2); PLT 340 X1000 (130-400); RBC 4.28 XMIL (4.2-5.4)
[2016-08-27] MEDS ORDERED: NS 1,000 ML IV ONE ×2 (17:28→19:20)
--- NOTE | 2016-08-27 17:33 | PROVIDER DOCUMENTATION ---
HPI-General Adult - General Source: patient - History of Present Illness -Gen Adult Nature of Presenting Problems: REPORTS SHE IS A TYPE 1 DIABETIC THAT HAS HAD AN INSULIN PUMP FOR PAST 2-3 MONTHS AND STATES SHE WAS AT HER PCP OFFICE TODAY WHEN THEY DOWNLOADED INFORMATION OFF PUMP AND NOTICED IT QUIT WORKING. PT BS IN OFFICE WAS GREATER THAN 550 AND WAS TOLD TO COME TO ER. PT ALSO REPORTS SHE WAS ADMITTED LAST FRIDAY AND DISCHARGED ON FRIDAY FOR DKA. PT DENIES ABD PAIN,N,.V,SWEATING, INCREASED HUNGER OR THIRST. DOES REPORTS KETONE IN URINE. RECEIVED 21 UNITS OF REGULAR INSULIN AT PCP OFFICE 15 MINUTES TILL 1700 AT TRIAGE BS 475. Location of Pain/Injury: reports: none Quality of Pain: reports: none Severity: reports: moderate Onset/Duration: reports: this afternoon Timing: reports: still present Similar Symptoms Previously?: Yes Recently seen or treated by another doctor?: Yes - Diabetes Related Context Context: reports: high blood sugar, prior DKA hospitalization <Alfa Souza - Last Filed: 08/27/16 17:28> <Pari Damon - Last Filed: 08/27/16 19:21> - General Chief Complaint: High Blood Sugar Stated Complaint: IN DKA Time Seen by Provider: 08/27/16 17:19 Allergies/Adverse Reactions: Patient Allergies Allergy/AdvReac Type Severity Reaction Status Date / Time cefaclor [From Ceclor] Allergy Unknown Unknown Verified 08/27/16 18:10 Home Medications: Home Medication List Medication Instructions Recorded Confirmed Last Taken Type Hydrocodone/Acetaminophen [[employer] 1 each PO TID 08/21/16 08/27/16 08/27/16 History 10-325 Tablet] Subcutaneous Insulin Pump [Insulin 1 each MC DAILY 08/21/16 08/27/16 08/27/16 History Pump] Gabapentin [Neurontin] 100 mg PO QHS 08/27/16 08/27/16 08/26/16 History Review of Systems - Adult - REVIEW OF SYSTEMS - ADULT Constitutional: reports: see HPI. denies: chills, fever, fatique Eyes: reports: no symptoms reported Ears, Nose, Mouth & Throat: reports: no symptoms reported Cardiovascular: reports: see HPI. denies: chest pain, irregular heart rate, orthopnea, syncope Respiratory: reports: no symptoms reported Gastrointestinal: reports: no symptoms reported Genitourinary: reports: see HPI. denies: dysuria, discharge, hematuria, urinary retention, urgency Musculoskeletal: reports: no symptoms reported Integumentary: reports: no symptoms reported Neurological: reports: no symptoms reported Psychiatric: reports: no symptoms reported Endocrine: reports: see HPI. denies: change in skin pigment, excessive sweating , cold intolerance, heat intolerance, increased thirst, polyuria Hematologic/Lymphatic: reports: no symptoms reported Allergic/Immunologic: reports: no symptoms reported All Other Systems: Reviewed and Negative <SouzaAlfa - Last Filed: 08/27/16 17:28> Past History - Adult - PAST MEDICAL HISTORY-ADULT Review of Records: reports: Nursing Assessment Review, Medications Reviewed Major Childhood Illnesses: reports: denies history Endocrine/Immune: reports: Diabetes Diabetes Type: Type 1 Diabetes controlled by:: Insulin Dependent - IMMUNIZATION STATUS Childhood Immunizations: See Nurse Assessment Flu Vaccine: See Nurse Assessment - FAMILY HISTORY Family History: reviewed, not pertinent, MS - SOCIAL HISTORY Smoking: cigarettes, less than 1 pack/day Provider spent 3-5 mins advising pt. on dangers of tobacco.: Discussed manners to quit use, and f/u contacts for add'l counseling. Substance Use: none/never <SouzaAlfa - Last Filed: 08/27/16 17:28> Physical Exam-General - PHYSICAL EXAM-ADULT Initial Vital Signs Reviewed: Yes - CONSTITUTIONAL General Appearance: appears well, alert, no apparent distress - EYES Eyes: PERRL/EOMI - HEAD, EARS, NOSE, MOUTH & THROAT HENMT: normocephalic/atraumatic, moist mucous membranes, normal ENT inspection, TMs normal, pharynx normal - RESPIRATORY Respiratory: chest non-tender, lungs clear, normal breath sounds, no pleuratic chest pain, no respiratory distress - CARDIOVASCULAR Cardiovascular: normal peripheral pulses, regular rate, rhythm, no edema, no gallop, no JVD, no murmur - GASTROINTESTINAL (ABDOMEN) Abdominal Exam: normal bowel sounds, non tender, soft, no organomegaly, no pulsatile mass - MUSCULOSKELETAL Back Exam: normal inspection, no CVA tenderness, no vertebral tenderness Extremity: normal range of motion, non-tender, normal gait - SKIN Integumentary: normal color, normal turgor, warm/dry - NEUROLOGIC Neurologic: senior contracts administrator II-XII nml as tested, grossly normal, no motor/sensory deficits - PSYCHIATRIC Psych/Mental Status: normal mood/affect, normal thought content, normal thought process, oriented x 3 <Alfa Souza - Last Filed: 08/27/16 17:28> Progress - PLAN OF CARE/RESULTS Progress/Plan/Lab Results: Orders Category Date Time Status FSBS [Finger Stick Blood Sugar (ED)] DIRECTED Care 08/27/16 17:15 Active IV Insertion ORDERED Care 08/27/16 17:28 Active ABG [RESP] Routine Lab 08/27/16 17:28 Ordered ACETONE SERUM [CHEM] Stat Lab 08/27/16 17:02 Received CBC WITH ELECTRONIC DIFF [HEME] Stat Lab 08/27/16 17:02 Completed COMPREHENSIVE METABOLIC PANEL [CHEM] Stat Lab 08/27/16 17:02 Received UA Reflex [URINALYSIS W/POSS RFLX CULT] [URINALYSIS] Lab 08/27/16 17:00 Uncollected Stat 0.9% Sodium Chloride Inj [Ns] 1,000 ml Med 08/27/16 17:28 Active IV 999 mls/hr Vital Signs - 24 hr 08/27/16 16:55 Temperature 98.2 F Pulse Rate 97 H Respiratory 18 Rate Blood Pressure 148/72 O2 Sat by Pulse 100 Oximetry Laboratory Tests 08/27/16 17:02 WBC 13.49 H RBC 4.28 Hgb 13.4 Hct 40.7 MCV 95.1 MCH 31.3 H MCHC 32.9 L RDW Std Deviation 14.5 Plt Count 340 MPV 9.9 Immature Gran % (Auto) 1.0 H Neut % (Auto) 52.8 Lymph % (Auto) 35.7 Cannon % (Auto) 7.5 Eos % (Auto) 2.3 Baso % (Auto) 0.7 Immature Gran # (Auto) 0.14 H Neut # (Auto) 7.12 H Lymph # (Auto) 4.82 H Cannon # (Auto) 1.01 H Eos # (Auto) 0.31 Baso # (Auto) 0.09 <Alfa Souza - Last Filed: 08/27/16 17:28> - PLAN OF CARE/RESULTS Progress/Plan/Lab Results: Laboratory Tests 08/27/16 08/27/16 08/27/16 17:02 17:02 17:26 WBC 13.49 H RBC 4.28 Hgb 13.4 Hct 40.7 MCV 95.1 MCH 31.3 H MCHC 32.9 L RDW Std Deviation 14.5 Plt Count 340 MPV 9.9 Immature Gran % (Auto) 1.0 H Neut % (Auto) 52.8 Lymph % (Auto) 35.7 Cannon % (Auto) 7.5 Eos % (Auto) 2.3 Baso % (Auto) 0.7 Immature Gran # (Auto) 0.14 H Neut # (Auto) 7.12 H Lymph # (Auto) 4.82 H Cannon # (Auto) 1.01 H Eos # (Auto) 0.31 Baso # (Auto) 0.09 Specimen Type Sample Site pH pCO2 pO2 HCO3 Base Excess Oxyhemoglobin ABG O2 Sat (Calculated) ABG O2 Saturation ABG Carboxyhemoglobin ABG Methemoglobin Gabriel Test A-a O2 Difference Total Hemoglobin Lactate Blood Gas Modality FiO2 % Sodium 135 L Potassium 5.4 H Chloride 90 L Carbon Dioxide 16 L Anion Gap 29 BUN 18 Creatinine 0.8 Estimated GFR/1.73 m2 > 60 BUN/Creatinine Ratio 23 Glucose 540 H* Calculated Osmolality 297 Calcium 9.3 Total Bilirubin 0.40 AST 12 ALT 15 Alkaline Phosphatase 101 Total Protein 6.7 Albumin 3.7 Globulin 3.0 Albumin/Globulin Ratio 1.2 Urine Source CLEAN CATCH Urine Color STRAW Urine Turbidity CLEAR Urine pH 5.5 Ur Specific North 1.024 Urine Protein NEGATIVE Ur Glucose (Stick) >1000 A Ur Ketones (Stick) >150 Urine Blood TRACE A Urine Nitrite NEGATIVE Urine Bilirubin NEGATIVE Urobilinogen Dipstick NORMAL Urine Leukocytes NEGATIVE Urine WBC (Auto) <10 Urine RBC (Auto) <10 U Epithel Cells (Auto) <10 Urine Bacteria (Auto) NEGATIVE Acetone Level MODERATE A 08/27/16 18:25 WBC RBC Hgb Hct MCV MCH MCHC RDW Std Deviation Plt Count MPV Immature Gran % (Auto) Neut % (Auto) Lymph % (Auto) Cannon % (Auto) Eos % (Auto) Baso % (Auto) Immature Gran # (Auto) Neut # (Auto) Lymph # (Auto) Cannon # (Auto) Eos # (Auto) Baso # (Auto) Specimen Type ARTERIAL Sample Site R BRACHIAL pH 7.30 L pCO2 26 L pO2 94 HCO3 15.5 L Base Excess -12.0 L Oxyhemoglobin 95.4 ABG O2 Sat (Calculated) 17.7 ABG O2 Saturation 99.3 ABG Carboxyhemoglobin 2.20 ABG Methemoglobin 1.6 H Gabriel Test NO A-a O2 Difference 23.0 Total Hemoglobin 13.1 Lactate 1.20 Blood Gas Modality ROOM AIR FiO2 % 21.0 Sodium Potassium Chloride Carbon Dioxide Anion Gap BUN Creatinine Estimated GFR/1.73 m2 BUN/Creatinine Ratio Glucose Calculated Osmolality Calcium Total Bilirubin AST ALT Alkaline Phosphatase Total Protein Albumin Globulin Albumin/Globulin Ratio Urine Source Urine Color Urine Turbidity Urine pH Ur Specific North Urine Protein Ur Glucose (Stick) Ur Ketones (Stick) Urine Blood Urine Nitrite Urine Bilirubin Urobilinogen Dipstick Urine Leukocytes Urine WBC (Auto) Urine RBC (Auto) U Epithel Cells (Auto) Urine Bacteria (Auto) Acetone Level Orders Category Date Time Status FSBS [Finger Stick Blood Sugar (ED)] DIRECTED Care 08/27/16 17:15 Active FSBS [Finger Stick Blood Sugar (ED)] DIRECTED Care 08/27/16 18:10 Active IV Insertion ORDERED Care 08/27/16 17:28 Completed ABG [RESP] Routine Lab 08/27/16 18:25 Completed ACETONE SERUM [CHEM] Stat Lab 08/27/16 17:02 Completed CBC WITH ELECTRONIC DIFF [HEME] Stat Lab 08/27/16 17:02 Completed COMPREHENSIVE METABOLIC PANEL [CHEM] Stat Lab 08/27/16 17:02 Completed UA Reflex [URINALYSIS W/POSS RFLX CULT] [URINALYSIS] Lab 08/27/16 17:26 Completed Stat 0.9% Sodium Chloride Inj [Ns] 1,000 ml Med 08/27/16 17:28 Discontinued IV 999 mls/hr Vital Signs - 24 hr 08/27/16 16:55 Temperature 98.2 F Pulse Rate 97 H Respiratory 18 Rate Blood Pressure 148/72 O2 Sat by Pulse 100 Oximetry - CONSULTS/PCP/HOSPITALIST Notification #1 *Consult/PCP/Hospitalist*: Time Discussed: 19:18 Reason/Comments: Admittance Consult Disposition: Admit (Admit Accepted.) <Pari Damon - Last Filed: 08/27/16 19:21> Departure <Alfa Souza - Last Filed: 08/27/16 17:28> - Departure Time of Disposition Order: 19:14 Certified Medical Emergency: Emergent - Critical Care Note Total Time (mins): 30 Critical Care Statement: This patient required my direct personal management to treat or rule out processes, the absence of which, could potentiallly result in sudden, clinically significant life or limb threatening deterioration. <Pari Damon - Last Filed: 08/27/16 19:21> - Departure DIAGNOSIS: DKA (diabetic ketoacidoses) Qualifiers: Diabetes mellitus type: type 1 Diabetes mellitus complication detail: without coma Qualified Code(s): E10.10 - Type 1 diabetes mellitus with ketoacidosis without coma Disposition: ADMITTED INPATIENT 09 Condition: Stable Additional Instructions: ED Follow Up Instructions: You have been treated by a care provider in the Emergency Department. These instructions are being provided to you so you can have an understanding of how to care for yourself upon discharge. Upon discharge from the Emergency Department, you are responsible for making arrangements for follow-up care by a physician of your choice. Take all prescribed medications as directed. Return to the Emergency Department immediately for any new or worsening symptoms. You may call the Physician Referral phone number at [phone] to obtain a list of Physicians who are taking new patients. Referrals: Radha Atkinson MD [Primary Care Provider] - Attestation - Scribe Verification/Attestation Scribe:: Alfa Souza Acting as Scribe for:: Tez Church Scribe documention review:: This chart was documented by a scribe and accurately reflects the service the provider performed and the decisions made by the provider. - Scribe Verification/Attestation #2 Shift Change Time: 18:00 Scribe Name: Pari Damon <Alfa Souza - Last Filed: 08/27/16 17:28> - Scribe Verification/Attestation Scribe:: Pari Damon Acting as Scribe for:: Tez Church Scribe documention review:: This chart was documented by a scribe and accurately reflects the service the provider performed and the decisions made by the provider. - Scribe Verification/Attestation #2 Shift Change Time: 18:00 Scribe Name: Pari Damon Acting as Scribe for:: Tez Church <Pari Dmaon - Last Filed: 08/27/16 19:21> Physician Attestation - Physician Attestation I, the provider, attest to the following statement:: Tez Church Physician documentation Attestation:: This documentation recorded by the scribe accurately reflects the service I personally performed and the decisions made by me. <Alfa Souza - Last Filed: 08/27/16 17:28>
[2016-08-27 17:50] LABS: AGAP 29; ALBUMIN 3.7 g/dL (3.5-5.0); ALKALINE PHOSPHATASE 101 U/L (32-104); BUN 18 mg/dL (8-22); CALCIUM 9.3 mg/dL (8.8-10.2); CHLORIDE 90 mmol/L (98-107); COSMO 297; GOT 12 U/L (10-30); GPT 15 U/L (10-36); POTASSIUM 5.4 mmol/L (3.5-5.1); SODIUM 135 mmol/L (136-145); TCO2 16 mmol/L (25-35); TOTAL PROTEIN 6.7 g/dL (6.3-8.3)
[2016-08-27 17:55] LABS: ACETONE SERUM MODERATE (NEGATIVE)
[2016-08-27 17:57] LABS: URINE CULTURE NEEDED? NO; URINE MICRO REVIEW NEEDED? NO; URINE SOURCE CLEAN CATCH
[2016-08-27 18:06] LABS: BILIRUBIN URINE NEGATIVE (NEGATIVE); BLOOD URINE TRACE (NEGATIVE); COLOR STRAW; GLUCOSE URINE >1000 mg/dL (NEGATIVE); LEUKOCYTES URINE NEGATIVE (NEGATIVE); NITRITE URINE NEGATIVE (NEGATIVE); PH URINE 5.5; PROTEIN URINE NEGATIVE (NEGATIVE); SP GRAVITY URINE 1.024; TURBIDITY URINE CLEAR (CLEAR); UROBILINOGEN URINE NORMAL (NORMAL)
[2016-08-27 18:08] LABS: UR EPITHELIAL CELLS <10 /HPF (<10); URINE BACTERIA NEGATIVE /HPF; URINE RBC <10 /HPF (<10); URINE WBC <10 /HPF (<10)
[2016-08-27 18:37] LABS: ALLEN TEST NO; BLOOD TYPE ARTERIAL; DRAW SITE R BRACHIAL; METHB 1.6 % (0.0-1.5); O2(CT) 17.7 mL/dL (15.0-23.0); PCO2(98.6) 26 mmHg (35-45); PO2(98.6) 94 mmHg (60-100); SAMPLE BLOOD; SAO2 99.3 % (95.0-100.0); THB 13.1 g/dL (11.5-17.4)
[2016-08-27 18:38] LABS: MODALITY ROOM AIR
[2016-08-27] MEDS ORDERED: HUMULIN R 100 UNIT in NS 100 ML IV SCH (19:30)
--- NOTE | 2016-08-27 21:21 | HISTORY AND PHYSICAL ---
Patient of Dr. Atkinson office. HISTORY OF PRESENT ILLNESS: Ms Phani Murillo 40-year-old lady with past medical type 1 diabetes who is on insulin pump. She also has a history of fibromyalgia, multiple sclerosis and chronic low back pain. She was recently discharged from our facility over 2 weeks ago. She said she spent about a week for that admission. Comes in complaining because of blood sugars elevated. She noticed that her blood sugar was in 500s and giving herself high doses of insulin via her pump but despite this her sugars never budged. Was after she had given herself the 3rd or 4th bolus that she decided to go see her family doctor. On arriving to Dr. Atkinson's office she was given a long-acting insulin 40 units, total 21 units of Humulin R with no drop in her blood sugars. She was then referred to the ER for further evaluation. Oddly enough the patient is totally asymptomatic. She denies any polyuria, polydipsia, blurred vision, GI complaints, genitourinary complaints, cardiorespiratory complaints, neurological complaints. REVIEW OF SYSTEMS: Twelve systems review negative. Positive findings as per HPI. ALLERGIES: Cepacol. HOME MEDICATIONS: She is on an insulin pump per her adjustment, she is on hydrocodone 3 times a day and gabapentin 100 mg at bedtime. SURGICAL HISTORY: She said she has only had a bilateral surgeries for carpal tunnel and bilateral arthroscopic knee surgery. SOCIAL HISTORY: She says she is trying to quit smoking currently smoking half to 1 pack a day. No alcohol, illicit drug use. FAMILY HISTORY: Positive history of CAD in the family and mother has type 1 diabetes. LAB WORK: White count 13,000, hemoglobin and hematocrit 13 and 40, platelets 340,000 with a normal differential. Sodium is 135, potassium 5.4, bicarb 60, anion gap 29, BUN 18, creatinine 0.8, blood sugar is 540. Acetone is moderate. Urinalysis, greater than 1000 glucose and greater 150 ketones. Blood gas pH 7.30, pCO2 26, PO2 94 on room air. PHYSICAL EXAMINATION: VITAL SIGNS: Blood pressure 150/80, heart rate 91, temperature is 98.4 degrees, respirations 16, 98% on room air. GENERAL: She is a middle-aged woman appears slightly older than stated age. She is A, O x3. Normal mood and affect. HEENT: Head is normocephalic. PATTIE, EOMI, anicteric, not pale. Negative for any oropharyngeal exudates or erythema. 00:04:11> cyanosis visualized. NECK: Supple, no JVD or carotid bruit. No thyromegaly. There is no lymphadenopathy. CHEST: Clear to auscultation. Good air entry both lung carrizales. CARDIOVASCULAR: First and second heart sounds are heard. No gallops, murmurs, rubs. Rhythm is regular. ABDOMEN: Protuberant, soft, no tenderness is elicited. No mass or megaly appreciated. Bowel sounds are hypoactive. RECTAL EXAM: Deferred. EXTREMITIES: Patient has trace to 1+ pitting edema in lower extremities. Pulses distally lower extremities have good volume and symmetrical, no clubbing or peripheral cyanosis. NEUROLOGIC: No focal deficits. SKIN: Intact. No breakdown, lesions, erythema. MUSCULAR: Exam is grossly normal. ASSESSMENT: At this time is. 1. Diabetic ketoacidosis. 2. Elevated blood pressure. 3. Leukocytosis secondary to diabetic ketoacidosis. 4. Multiple sclerosis. 5. Fibromyalgia. 6. Chronic low back pain. PLAN: Patient from all intents and purposes patient's pump seems to have malfunctioned. I have informed her that when she is discharged she is probably going to end up going home on long-acting insulin with subcutaneous shots i.e. on a sliding scale with carbohydrate counting. The patient understands this and apparently has expected this line of management. In the interim she will be transferred to [facility] since we have no ICU beds and patient be extremely difficult to manage in the ER. Dr. Carranzaam been gracious enough to accept this patient and will assume care on arrival to [place] and DKA protocol has been initiated and will be followed accordingly till patient is out of diabetic ketoacidosis. Critical care time in this patient estimated to be 33 minutes.
[2016-08-27] MEDS ORDERED: LOVENOX SUBQ SCH (21:44)
[2016-08-27] MEDS ORDERED: NEURONTIN PO SCH (21:44)
[2016-08-27 22:20] LABS: HEMOGLOBIN A1C 8.1 % (4.8-6.0)
[2016-08-27] MEDS ORDERED: NS 1,000 ML ONE (22:27)
[2016-08-27] MEDS ORDERED: MAGNESIUM SULFATE 2 GM/S.W.I. 50 ML IV PRN (22:50)
[2016-08-27] MEDS ORDERED: D5 NS 1,000 ML IV SCH (22:50)
[2016-08-27] MEDS ORDERED: SODIUM PHOSPHATE 30 MMOL in D5W 250 ML IV PRN (22:50)
[2016-08-27] MEDS ORDERED: ZOFRAN PO PRN (22:50)
[2016-08-27] MEDS ORDERED: ZOFRAN IV PRN (22:50)
[2016-08-27] MEDS ORDERED: TYLENOL PO PRN (22:50)
[2016-08-27] MEDS ORDERED: TYLENOL PR PRN (22:50)
[2016-08-27] MEDS ORDERED: HUMULIN R 100 UNIT in NS 99 ML IV SCH (22:50)
[2016-08-27] MEDS ORDERED: D50W SYRINGE IV PRN (22:50)
[2016-08-27 23:26] LABS: MAGNESIUM 1.8 mg/dL (1.5-2.7)
[2016-08-27 23:36] LABS: AGAP 13; BUN 11 mg/dL (8-22); CHLORIDE 104 mmol/L (98-107); COSMO 276; POTASSIUM 3.6 mmol/L (3.5-5.1); SODIUM 136 mmol/L (136-145); TCO2 19 mmol/L (25-35)
[2016-08-28] MEDS ORDERED: KLOR-CON PO PRN (00:03)
[2016-08-28] MEDS: NORCO-10 PO SCH ×2 (00:29→10:02)
[2016-08-28] MEDS: KLOR-CON PO PRN ×2 (00:31→04:00)
[2016-08-28] MEDS: NS 1,000 ML IV SCH ×2 (00:40→03:22)
[2016-08-28] MEDS ORDERED: POTASSIUM CHLORIDE 20 MEQ/SWI 100 ML IV PRN ×2 (01:29→01:34)
[2016-08-28 03:43] LABS: AGAP 11; BUN 8 mg/dL (8-22); CALCIUM 7.9 mg/dL (8.8-10.2); CHLORIDE 109 mmol/L (98-107); COSMO 281; MAGNESIUM 1.8 mg/dL (1.5-2.7); POTASSIUM 3.8 mmol/L (3.5-5.1); SODIUM 141 mmol/L (136-145); TCO2 21 mmol/L (25-35)
[2016-08-28 07:46] LABS: MANUAL DIFF NEEDED? NO
[2016-08-28 07:49] LABS: BASO% 0.8 % (0.0-0.8); EOS# 0.34 X1000 (0.0-0.7); EOS% 3.9 % (0.0-10.0); HEMATOCRIT 34.9 % (37.0-47.0); HEMOGLOBIN 11.9 g/dL (12.0-16.0); IMM GRAN# 0.05 X1000 (0.0-0.04); IMM GRAN% 0.6 % (0.0-0.5); LYMPH# 5.24 X1000 (1.2-3.4); LYMPH% 59.4 % (20.5-51.1); MCH 31.4 PG (27-31); MCHC 34.1 g/dL (33-37); MCV 92.1 FL (81-99); MONO# 0.74 X1000 (0.11-0.59); MONO% 8.4 % (1.7-9.3); MPV 9.5 FL (7.4-10.4); NEUT% 26.9 % (42.2-75.2); PLT 281 X1000 (130-400); RBC 3.79 XMIL (4.2-5.4)
[2016-08-28 08:38] LABS: AGAP 13; BUN 5 mg/dL (8-22); CALCIUM 8.2 mg/dL (8.8-10.2); CHLORIDE 107 mmol/L (98-107); COSMO 276; MAGNESIUM 1.8 mg/dL (1.5-2.7); SODIUM 141 mmol/L (136-145); TCO2 21 mmol/L (25-35)
[2016-08-28] MEDS ORDERED: PATIENT'S OWN MED SUBQ SCH (09:00)
[2016-08-28] MEDS ORDERED: HUMALOG DOSE (PARKWAY) SUBQ SCH (11:00)
[2016-08-28 11:08] LABS: AGAP 9; BUN 4 mg/dL (8-22); CALCIUM 8.6 mg/dL (8.8-10.2); CHLORIDE 104 mmol/L (98-107); COSMO 274; MAGNESIUM 1.8 mg/dL (1.5-2.7); POTASSIUM 4.4 mmol/L (3.5-5.1); SODIUM 137 mmol/L (136-145); TCO2 24 mmol/L (25-35)
[2016-08-28 12:22] VITALS: BP 159/84
--- NOTE | 2016-08-29 05:59 | DISCHARGE SUMMARY ---
ADMISSION DATE: 08/27/2016 DISCHARGE DATE: 08/28/2016 PRIMARY CARE PHYSICIAN: Dr. Radha Atkinson MD DIAGNOSES: 1. Diabetic ketoacidosis. 2. Elevated blood pressure. 3. Multiple sclerosis. 4. Fibromyalgia. 5. Chronic low back pain. DIAGNOSTICS: Labs: Hemoglobin A1c is 8.1. Blood sugar was 540 on admission. She was acetone positive. HOSPITAL COURSE: Ms Murillo presented to the emergency room under the instructions of Dr. Atkinson. She has a long history of type 1 diabetes. She was non compliant and was unable to control her blood sugars with insulin long-acting or per sliding scale. Therefore, she was tried on an insulin pump. The patient states that she never learned how to use the pump. She just could not understand it. She was unable to control blood sugars with the pump having multiple admissions in DKA. Evidently she had blood sugars over 500. She had given herself high boluses of insulin via her pump reportedly although her blood sugars never decreased, in fact they increased. After the 3rd or 4th bolus, she was seen by Dr. Atkinson her PCP. At the office, she was given 40 units of tresiba as well as a total of 21 units of Humulin R with no drop in her blood sugars. Therefore, she was sent to the emergency room. She was found to be in DKA having blood sugars of 500 being acetone positive. She was given IV hydration, placed on an insulin drip, and electrolytes and insulin were managed per DKA protocol. Blood sugars decreased to the 120s to 170s, and per protocol drip was discontinued. She was placed on sliding scale insulin. Electrolytes were followed and repleted as stated. I did call and speak with Dr. Atkinson regarding this patient. Due to the fact that the patient stated she was not able to manage her insulin pump, but in fact if she were able to manage it was apparent that the pump was not working. Dr. Atkinson said that she would not put the patient back on an insulin pump and she had given the patient a written sliding scale as well as instructions on tresiba. Prior to coming to the emergency room, she also had given her a tresiba and Novolin pen. Dr. Atkinson wanted the patient to be discharged per these instructions and we will comply. DISCHARGE EXAMINATION: Cardiovascular: Regular rate and rhythm. S1 and S2 appreciated. Pulmonary: Breath sounds are clear with no increased work of breathing noted Gastrointestinal: Abdomen is soft, nontender, and nondistended. Bowel sounds in all 4 quadrants. Neurologic: She is alert and oriented x3. Extremities: No clubbing, cyanosis, or edema. Calves are nontender. Pulses are palpable x4. Skin: Warm and dry. DISCHARGE MEDICATIONS: 1. Neurontin 100 mg at bedtime. 2. [place] 10 1 three times a day. 3. Tresiba 40 units subcutaneous daily. 4. NovoLog sliding scale 70-150 0 units 151-200 3 units, 201-250 6 units, 251-300 9 units, 301- 350 12 units, and greater than 350 15 units. FOLLOWUP: She has an appointment with Dr. Atkinson in 6 days. She has been instructed to keep this appointment, but to call for any questions prior to the appointment. DISCHARGE ACTIVITY: As tolerated. DISCHARGE DIET: Diabetic. DISCHARGE VITAL SIGNS: Blood pressure is 159/84, respirations 20, heart rate is 75, temperature is 98.4 degrees with room air sats 97-100%. She is being discharged home in stable condition with her mother. TIME SPENT: This is a greater than 30 minute discharge. Dictated by LESLY Chang for Trey Easley MD
== END 2016-08-28 13:15 | disposition home or self-care (01) | DRG 639 ==
LOC: ED 16:51 → P.ICU 20:25
PROVIDERS: ATTEND Family Medicine
DX: E10.10 Type 1 diabetes mellitus with ketoacidosis without coma (principal); G35 Multiple sclerosis; M79.7 Fibromyalgia; R03.0 Elevated blood-pressure reading, without diagnosis of hypertension; F17.210 Nicotine dependence, cigarettes, uncomplicated; Z79.899 Other long term (current) drug therapy; Z96.41 Presence of insulin pump (external) (internal); Z82.49 Family history of ischemic heart disease and other diseases of the circulatory system; Z83.3 Family history of diabetes mellitus
CPT/HCPCS: 80048; 80053; 81001; 82009; 82805; 82948; 83036; 83735; 84100; 85025; 99285; J1650; J1815; J7030; J7042

== ENCOUNTER 2016-09-04 00:43 | Emergency (ER) ==
[2016-09-04] MEDS ORDERED: HUMULIN R IV ONE (00:55)
[2016-09-04] MEDS ORDERED: NS 1,000 ML IV ONE ×2 (00:55→02:55)
[2016-09-04 01:13] LABS: ALLEN TEST YES; BE 2.1 mmoll (-3.0-3.0); BLOOD TYPE ARTERIAL; DRAW SITE R RADIAL; METHB 1.6 % (0.0-1.5); O2(CT) 18.7 mL/dL (15.0-23.0); PCO2(98.6) 35 mmHg (35-45); PO2(98.6) 63 mmHg (60-100); SAMPLE BLOOD; THB 14.6 g/dL (11.5-17.4); pH(98.6) 7.47 (7.35-7.45)
[2016-09-04 01:14] LABS: MODALITY ROOM AIR
--- NOTE | 2016-09-04 01:36 | PROVIDER DOCUMENTATION ---
HPI-General Adult - General Source: patient - History of Present Illness -Gen Adult Nature of Presenting Problems: 40 year old F presents to the ED with a cc of high blood sugar. Father states that he went to check on pt and found her drowsy and acting as if she was intoxicated with slurred speech. Pt saw PCP yesterday and was told to take insulin as usual. PT states that she had a light breakfast and light lunch. PT states between [id number] she ate a bagel, biscuit, frozen TV dinner, omelet, and peanut butter and banana sandwich. PT was just recently discharged from the hospital for DKA. Pt is running a fever on arrival to ED. Location of Pain/Injury: reports: none Pain Radiation: reports: no radiation Severity: reports: moderate Onset/Duration: reports: last night Timing: reports: still present Context/Activities at Onset: reports: none Associated Symptoms: reports: fever/chills, weakness Similar Symptoms Previously?: Yes Recently seen or treated by another doctor?: Yes - Diabetes Related Context Context: reports: high blood sugar, change in mental status, prior DKA hospitalization <Helena Vides - Last Filed: 09/04/16 02:07> <Max Powers - Last Filed: 09/04/16 03:08> - General Chief Complaint: High Blood Sugar Stated Complaint: HIGH BLOOD SUGAR Time Seen by Provider: 09/04/16 00:52 Allergies/Adverse Reactions: Patient Allergies Allergy/AdvReac Type Severity Reaction Status Date / Time cefaclor [From Ceclor] Allergy Unknown Unknown Verified 09/04/16 01:50 Home Medications: Home Medication List Medication Instructions Recorded Confirmed Last Taken Type Hydrocodone/Acetaminophen [[place] 1 each PO TID 08/21/16 09/04/16 08/27/16 History 10-325 Tablet] Gabapentin [Neurontin] 100 mg PO QHS 08/27/16 09/04/16 08/26/16 History Insulin Aspart [Novolog] See Protocol SQ 4XDAY #1 vial 08/28/16 09/04/16 Rx Insulin Degludec [Tresiba 40 unit SQ DAILY #1 insuln.pen 08/28/16 09/04/16 Unknown Rx Flextouch U-100] Doxycycline 100 mg PO BID #14 capsule 09/04/16 Unknown Rx Fluconazole [Diflucan] 100 mg PO DAILY #7 tablet 09/04/16 Unknown Rx Review of Systems - Adult - REVIEW OF SYSTEMS - ADULT Constitutional: reports: fever. denies: chills Eyes: reports: no symptoms reported Ears, Nose, Mouth & Throat: reports: no symptoms reported Cardiovascular: denies: chest pain, palpitations Respiratory: denies: cough, shortness of breath Gastrointestinal: denies: nausea, vomiting Genitourinary: reports: no symptoms reported Musculoskeletal: reports: muscle weakness. denies: muscle aches Integumentary: denies: skin sores/ulcer, skin thickening Neurological: reports: no symptoms reported Psychiatric: reports: no symptoms reported Endocrine: reports: no symptoms reported Hematologic/Lymphatic: reports: no symptoms reported Allergic/Immunologic: reports: no symptoms reported All Other Systems: Reviewed and Negative <Helena Vides - Last Filed: 09/04/16 02:07> Past History - Adult - PAST MEDICAL HISTORY-ADULT Review of Records: reports: Nursing Assessment Review, Medications Reviewed Major Childhood Illnesses: reports: denies history Endocrine/Immune: reports: Diabetes Diabetes Type: Type 1 - PRIOR SURGERIES/PROCEDURES Surgical/Procedure History: reports: orthopedic (extremity) - IMMUNIZATION STATUS Childhood Immunizations: See Nurse Assessment Flu Vaccine: See Nurse Assessment - FAMILY HISTORY Family History: reviewed, not pertinent, MS - SOCIAL HISTORY Smoking: cigarettes, greater than 1 pack/day Provider spent 3-5 mins advising pt. on dangers of tobacco.: Discussed manners to quit use, and f/u contacts for add'l counseling. Substance Use: none/never Alcohol Use Frequency: never <Helena Vides - Last Filed: 09/04/16 02:07> Physical Exam-General - PHYSICAL EXAM-ADULT Initial Vital Signs Reviewed: Yes - CONSTITUTIONAL General Appearance: alert - HEAD, EARS, NOSE, MOUTH & THROAT HENMT: other (dry oral membranes) - RESPIRATORY Respiratory: chest non-tender, lungs clear, normal breath sounds - CARDIOVASCULAR Cardiovascular: tachycardia - GASTROINTESTINAL (ABDOMEN) Abdominal Exam: non tender, soft - NEUROLOGIC Neurologic: other (minimal slurred speech) <Helena Vides - Last Filed: 09/04/16 02:07> Progress - REASSESSMENT Reassessment #1 Time Reassessed: 02:00 (FSBS 190) - EKG 1 Time of EKG reading by physician:: 01:55 EKG Read and Signed by:: Max Powers EKG Interpretation (*Must complete 3 of following elements*): Abnormal Rate: 127 Rhythm: sinus tachycardia QRS: RBB Comments: L anterior fascicular block, bifascicular block <Helena Vides - Last Filed: 09/04/16 02:07> - REASSESSMENT Reassessment #1 Time Reassessed: 03:06 Status: improving <Max Powers - Last Filed: 09/04/16 03:08> Departure <Helena Vides - Last Filed: 09/04/16 02:07> - Departure Time of Disposition Order: 02:58 Certified Medical Emergency: Emergent <Max Powers - Last Filed: 09/04/16 03:08> - Departure DIAGNOSIS: Hyperglycemia without ketosis, Fever Disposition: HOME 01 Condition: Stable Additional Instructions: ED Follow Up Instructions:keep diet under control You have been treated by a care provider in the Emergency Department. These instructions are being provided to you so you can have an understanding of how to care for yourself upon discharge. Upon discharge from the Emergency Department, you are responsible for making arrangements for follow-up care by a physician of your choice. Take all prescribed medications as directed. Return to the Emergency Department immediately for any new or worsening symptoms. You may call the Physician Referral phone number at [phone] to obtain a list of Physicians who are taking new patients. Prescriptions: Fluconazole [Diflucan] 100 mg PO DAILY #7 tablet Doxycycline 100 mg PO BID #14 capsule Referrals: Radha Atkinson MD [Primary Care Provider] - Attestation - Scribe Verification/Attestation Scribe:: Helena Vides Acting as Scribe for:: Max Powers Scribe documention review:: This chart was documented by a scribe and accurately reflects the service the provider performed and the decisions made by the provider. <Helena Vides - Last Filed: 09/04/16 02:07> Physician Attestation - Physician Attestation I, the provider, attest to the following statement:: Max Powers Physician documentation Attestation:: This documentation recorded by the scribe accurately reflects the service I personally performed and the decisions made by me. <Helena Vides - Last Filed: 09/04/16 02:07>
[2016-09-04 01:50] LABS: MANUAL DIFF NEEDED? NO
[2016-09-04 01:53] LABS: BASO% 0.9 % (0.0-0.8); EOS# 0.15 X1000 (0.0-0.7); EOS% 1.6 % (0.0-10.0); HEMATOCRIT 45.9 % (37.0-47.0); HEMOGLOBIN 15.3 g/dL (12.0-16.0); IMM GRAN# 0.07 X1000 (0.0-0.04); IMM GRAN% 0.7 % (0.0-0.5); LYMPH# 2.78 X1000 (1.2-3.4); LYMPH% 29.7 % (20.5-51.1); MCHC 33.3 g/dL (33-37); MCV 93.1 FL (81-99); MONO# 1.76 X1000 (0.11-0.59); MONO% 18.8 % (1.7-9.3); MPV 9.6 FL (7.4-10.4); NEUT% 48.3 % (42.2-75.2); PLT 300 X1000 (130-400); RBC 4.93 XMIL (4.2-5.4)
[2016-09-04 02:33] LABS: URINE CULTURE NEEDED? NO; URINE MICRO REVIEW NEEDED? NO; URINE SOURCE CATH
[2016-09-04 02:34] LABS: BILIRUBIN URINE NEGATIVE (NEGATIVE); BLOOD URINE TRACE (NEGATIVE); COLOR YELLOW; GLUCOSE URINE >1000 mg/dL (NEGATIVE); LEUKOCYTES URINE NEGATIVE (NEGATIVE); NITRITE URINE NEGATIVE (NEGATIVE); PROTEIN URINE TRACE mg/dL (NEGATIVE); SP GRAVITY URINE 1.031; TURBIDITY URINE CLEAR (CLEAR); UROBILINOGEN URINE NORMAL (NORMAL)
[2016-09-04 02:34] LABS: PROTIME 10.2 Seconds (9.2-11.7); PTT 25.5 Seconds (22.0-36.0)
[2016-09-04 02:35] LABS: UR EPITHELIAL CELLS <10 /HPF (<10); URINE BACTERIA NEGATIVE /HPF; URINE RBC <10 /HPF (<10); URINE WBC <10 /HPF (<10)
[2016-09-04] MEDS ORDERED: LEVAQUIN 500 MG/D5W 100 ML IV ONE (02:38)
[2016-09-04 02:54] LABS: UR AMPHETAMINES QUAL NONE DETECTED (NONE DETECT); UR BARBITUATES QUAL PRESUMPTIVE POSITIVE (NONE DETECT); UR BENZODIAZEPIN QUAL NONE DETECTED (NONE DETECT); UR CANNABINOIDS QUAL NONE DETECTED (NONE DETECT); UR COCAINE QUAL NONE DETECTED (NONE DETECT); UR METHADONE QUAL NONE DETECTED (NONE DETECT); UR OPIATES QUAL NONE DETECTED (NONE DETECT); UR OXYCODONE QUAL NONE DETECTED (NONE DETECT); UR PCP QUAL NONE DETECTED (NONE DETECT)
[2016-09-04 03:04] LABS: AGAP 12; ALBUMIN 3.6 g/dL (3.5-5.0); ALKALINE PHOSPHATASE 107 U/L (32-104); BUN 13 mg/dL (8-22); CALCIUM 8.3 mg/dL (8.8-10.2); CHLORIDE 98 mmol/L (98-107); CK PROFILE 30 U/L (24-173); COSMO 277; GOT 14 U/L (10-30); GPT 15 U/L (10-36); POTASSIUM 4.1 mmol/L (3.5-5.1); SODIUM 135 mmol/L (136-145); TCO2 25 mmol/L (25-35); TOTAL BILIRUBIN 0.27 mg/dL (0.20-1.00); TOTAL PROTEIN 6.3 g/dL (6.3-8.3)
[2016-09-04 03:55] VITALS: BP 149/80
--- NOTE | 2016-09-04 07:21 | EKG Report ---
Test Performed on : 09/04/2016 01:55:18 AM Test Reason : AMS Blood Pressure : / mmHG Vent. Rate : 127 BPM Atrial Rate : 127 BPM P-R Int : 116 ms QRS Dur : 116 ms QT Int : 338 ms P-R-T Axes : 065 158 049 degrees QTc Int : 491 ms Sinus tachycardia. Right bundle branch block Left posterior fascicular block Bifascicular block Abnormal ECG When compared with ECG of 21-AUG-2016 18:56, premature ventricular complexes. are no longer present Non-specific change in ST segment in Anterior leads Unconfirmed Result
--- NOTE | 2016-09-04 07:40 | Diag Imaging Result Document ---
PROCEDURE NAME: CHEST-2 VIEWS - 09/04/2016 CHEST X-RAY 2 VIEWS, 09/04/2016: COMPARISON: 08/22/2016. FINDINGS: Stable granuloma in the right upper lobe. No focal infiltrates, pneumothorax, or pleural effusion. Heart size and pulmonary vascularity is normal. IMPRESSION: No acute disease or change from prior.
== END 2016-09-04 04:50 | disposition home or self-care (01) ==
LOC: ED 00:43
DX: E10.65 Type 1 diabetes mellitus with hyperglycemia (principal); R50.9 Fever, unspecified; R94.31 Abnormal electrocardiogram [ECG] [EKG]; R47.81 Slurred speech; M62.81 Muscle weakness (generalized); R00.0 Tachycardia, unspecified; F17.210 Nicotine dependence, cigarettes, uncomplicated; Z79.4 Long term (current) use of insulin; Z79.899 Other long term (current) drug therapy; Z71.6 Tobacco abuse counseling
CPT/HCPCS: 71020; 80053; 81001; 82550; 82805; 82948; 83605; 84484; 85025; 85610; 85730; 93005; G0480; J7030; 80320; 80324; 80345; 80346; 80349; 80353; 80358; 80361; 80365; 83992

== ENCOUNTER 2019-07-12 14:14 | Inpatient (IN) ==
[2019-07-12] MEDS ORDERED: NS 1,000 ML IV ONE ×2 (15:08→16:21)
--- NOTE | 2019-07-12 15:20 | PROVIDER DOCUMENTATION ---
HPI-Abdominal Pain/GI Problem - General Chief Complaint: DKA ALERT Stated Complaint: VOMITING Time Seen by Provider: 07/12/19 14:55 Source: patient, family Allergies/Adverse Reactions: Patient Allergies Allergy/AdvReac Type Severity Reaction Status Date / Time cefaclor [From Ceclor] Allergy Unknown Unknown Verified 09/04/16 01:50 Home Medications: Home Medication List Medication Instructions Recorded Confirmed Last Taken Type Hydrocodone/Acetaminophen [[place] 1 each PO TID 08/21/16 09/04/16 08/27/16 History 10-325 Tablet] Gabapentin [Neurontin] 100 mg PO QHS 08/27/16 09/04/16 08/26/16 History Insulin Aspart [Novolog] See Protocol SQ 4XDAY #1 vial 08/28/16 09/04/16 09/03/16 Rx Insulin Degludec [Tresiba 40 unit SQ DAILY #1 insuln.pen 08/28/16 09/04/16 Unknown Rx Flextouch U-100] Doxycycline 100 mg PO BID #14 capsule 09/04/16 Unknown Rx Fluconazole [Diflucan] 100 mg PO DAILY #7 tablet 09/04/16 Unknown Rx - History of Present Illness-ABD Nature of Presenting Problems: 43 yr old F, hx of type 1 DM, multiple sclerosis presenting with her sister with complaints of altered mental status, elevated BG, and incoherent speech that began this morning. The pt states that she cannot recall what brings her into the ED, but her sister states that earlier this morning, she began vomiting, a total of 2-3 episodes total. The sister then notes that the pt was due to go in for her monthly MS infusion, but was unable to; her family notes that she was at some point speaking incoherently. The pt had not yet taken her meds, nor had she had anything to eat today; it is as of yet unknown when her last meal yesterday was, and the pt cannot remember. When her family first found her, her glucose was noted to be 270 on her continuous blood glucose monitor; she received 6 units of humalog; the pt was noted to have a BG of 346 by the time she arrived in the ED. The pt denies any abdominal pain; she thinks she may have been urinating more frequently over the past few days. Severity in ED: reports: moderate Onset/Duration: reports: 4-6 hours ago Timing: reports: still present Exposure to sick contacts?: No Review of Systems - Adult - REVIEW OF SYSTEMS - ADULT Constitutional: reports: no symptoms reported Eyes: reports: no symptoms reported Ears, Nose, Mouth & Throat: reports: no symptoms reported Cardiovascular: reports: see HPI Respiratory: reports: no symptoms reported Gastrointestinal: reports: see HPI Genitourinary: reports: see HPI Musculoskeletal: reports: no symptoms reported Integumentary: reports: no symptoms reported Neurological: reports: see HPI Psychiatric: reports: no symptoms reported Endocrine: reports: see HPI Past History - Adult - PAST MEDICAL HISTORY-ADULT Review of Records: reports: Nursing Assessment Review Major Childhood Illnesses: reports: denies history Endocrine/Immune: reports: Diabetes Diabetes Type: Type 1 Diabetes controlled by:: Insulin Dependent - PRIOR SURGERIES/PROCEDURES Surgical/Procedure History: reports: orthopedic (extremity) - IMMUNIZATION STATUS Childhood Immunizations: See Nurse Assessment Flu Vaccine: See Nurse Assessment - FAMILY HISTORY Family History: reviewed, not pertinent, MS - SOCIAL HISTORY Living Situation: family Physical Exam-General - PHYSICAL EXAM-ADULT Initial Vital Signs Reviewed: Yes - CONSTITUTIONAL General Appearance: alert, slow to respond - EYES Eyes: PERRL/EOMI - HEAD, EARS, NOSE, MOUTH & THROAT HENMT: normocephalic/atraumatic, other (lips appear dry) - RESPIRATORY Respiratory: chest non-tender, lungs clear, normal breath sounds - CARDIOVASCULAR Cardiovascular: tachycardia - GASTROINTESTINAL (ABDOMEN) Abdominal Exam: normal bowel sounds, soft, tenderness - MUSCULOSKELETAL Extremity: no pedal edema - SKIN Integumentary: warm/dry, pallor - NEUROLOGIC Neurologic: motor weakness. negative: facial droop, focal weakness - PSYCHIATRIC Psych/Mental Status: normal mood/affect, oriented x 3 Progress - PLAN OF CARE/RESULTS Progress/Plan/Lab Results: Vital Signs - 8 hr 07/12/19 14:34 Temperature 97.1 F L Pulse Rate 138 H Respiratory Rate 18 Blood Pressure 100/69 O2 Sat by Pulse Oximetry 99 Laboratory Results - last 24 hr 07/12/19 14:42 POC Glucose 346 H Orders Category Date Time Status Cardiac Monitoring DIRECTED Care 07/12/19 14:52 Active ED: Urine Bedside NOW Care 07/12/19 14:52 Active FSBS/Accucheck Result Q1H Care 07/12/19 14:52 Active Saline Loc NOW Care 07/12/19 14:52 Active Vital Signs Order Q1H Care 07/12/19 14:52 Active ABG [RESP] Routine Lab 07/12/19 14:52 Ordered ACETONE SERUM [CHEM] Stat Lab 07/12/19 14:52 Uncollected CBC WITH NO DIFF [HEME] Stat Lab 07/12/19 14:52 Uncollected CK PROFILE [SP CHEM] Stat Lab 07/12/19 14:52 Uncollected COMPREHENSIVE METABOLIC PANEL [CHEM] Stat Lab 07/12/19 14:52 Uncollected LACTATE, PLASMA [CHEM] Stat Lab 07/12/19 14:52 Uncollected MAGNESIUM [CHEM] Stat Lab 07/12/19 14:52 Uncollected PHOSPHORUS [CHEM] Stat Lab 07/12/19 14:52 Uncollected TROPONIN T HIGH SENSITIVITY Stat Lab 07/12/19 14:52 Uncollected URINALYSIS [URINALYSIS] Stat Lab 07/12/19 14:52 Uncollected URINE DRUG SCREEN PL Stat Lab 07/12/19 14:52 Uncollected URINE DRUG SCREEN Stat Lab 07/12/19 14:52 Uncollected 0.9% Sodium Chloride Inj [Ns] 1,000 ml Med 07/12/19 15:08 Active IV 999 mls/hr EKG [EKG] Routine Ther 07/12/19 14:52 Ordered Pt with elevated WBC, glu, lactate, abnormal ABG; will be admitted for further management of DKA. Case discussed with hospitalist. Result Diagrams: 07/12/19 15:19 07/12/19 19:50 - REASSESSMENT Reassessment #1 Time Reassessed: 19:20 (Flanagan cath in place; bladder scan reveals 908 mls urine in bladder; sending for ct abd/pel, will also attempt larger catheter) Reassessment #2 Time Reassessed: 21:00 (Catheter successfully placed) Reassessment #3 Time Reassessed: 22:20 (25 mg of cardizem andmistered, no appreciable change in HR) - EKG 1 Time of EKG reading by physician:: 13:30 EKG Read and Signed by:: Suzanne Sullivan EKG Interpretation (*Must complete 3 of following elements*): Abnormal Rate: 130 Rhythm: sinus [place]: normal QRS: RBB, other MI Interval: normal ST Wave: non-specific ST changes Prior EKG Comparison: unchanged from prior Comments: left posterior fascicular block noted as well, no changes from 08/2016 2 Time of EKG reading by physician:: 20:37 EKG Read and Signed by:: Suzanne Sullivan EKG Interpretation (*Must complete 3 of following elements*): Abnormal Rate: 140 Rhythm: sinus tachycardia with short MI [place]: left QRS: RBB MI Interval: shortened ST Wave: non-specific ST changes - CONSULTS/PCP/HOSPITALIST Notification #1 *Consult/PCP/Hospitalist*: Sheila (for Dr. Burgos) Time Discussed: 17:00 Consult Disposition: Admit Departure - Departure Date of Disposition Decision: 07/12/19 Time of Disposition Decision: 18:59 DIAGNOSIS: DKA (diabetic ketoacidoses) Qualifiers: Diabetes mellitus type: type 1 Diabetes mellitus complication detail: without coma Qualified Code(s): E10.10 - Type 1 diabetes mellitus with ketoacidosis without coma Leukocytosis Qualifiers: Leukocytosis type: unspecified Qualified Code(s): D72.829 - Elevated white blood cell count, unspecified Disposition: ADMITTED INPATIENT 09 Certified Medical Emergency: Emergent Condition: Fair - Critical Care Note This patient required my direct & personal management of CC.: No Attestation - Physician/ TARUN Attestation Patient care was provided by Advanced Practice Provider:: No The physician spent face to face time with patient:: Yes Advanced Practice Provider documentation review:: Supervising physician onsite and consulted in the evaluation and care of this patient. The physician did have a face to face encounter with the patient.
[2019-07-12 15:51] LABS: HEMATOCRIT 53.4 % (37.0-47.0); MCH 29.5 PG (27-31); MCHC 31.8 g/dL (33-37); MCV 92.5 FL (81-99); MPV 9.8 FL (7.4-10.4); RBC 5.77 XMIL (4.2-5.4); RDW 14.4 % (11.5-14.5); WBC 26.57 X1000 (4.8-10.8)
[2019-07-12 16:11] LABS: ESTIMATED GFR 27
--- NOTE | 2019-07-12 16:15 | Diag Imaging Result Doc PS360 ---
EXAM: CT HEAD W/O CONTRAST HISTORY: AMS TECHNIQUE: CT head without intravenous contrast COMPARISON: 08/22/2016 FINDINGS: No parenchymal hemorrhage. No epidural or subdural hematoma. No subarachnoid hemorrhage. There are chronic microvascular ischemic changes. No mass identified on this noncontrasted exam. No hydrocephalus. No sinus opacification. IMPRESSION: 1.No hemorrhage 2.Chronic microvascular ischemic changes This exam was performed using automated exposure control, adjustment of mA or kV according to patient size, and/or use of iterative reconstruction technique. Electronically signed by Teddy Calderon 07/12/2019 4:12 PM
[2019-07-12 16:16] LABS: AGAP 30; ALB/GLOB RATIO 1.8; ALBUMIN 4.9 g/dL (3.5-5.0); ALKALINE PHOSPHATASE 151 U/L (32-104); BUN 36 mg/dL (8-22); CALCIUM 10.3 mg/dL (8.8-10.2); CHLORIDE 94 mmol/L (98-107); CK PROFILE 42 U/L (24-173); COSMO 289; GLUCOSE 391 mg/dL (70-104); GOT 16 U/L (10-30); GPT 13 U/L (10-36); MAGNESIUM 2.9 mg/dL (1.5-2.7); PHOSPHORUS 8.2 mg/dL (2.7-4.5); POTASSIUM 5.2 mmol/L (3.5-5.1); SODIUM 132 mmol/L (136-145); TCO2 8 mmol/L (25-35); TOTAL BILIRUBIN 0.34 mg/dL (0.20-1.00); TOTAL PROTEIN 7.6 g/dL (6.3-8.3)
--- NOTE | 2019-07-12 16:20 | Diag Imaging Result Doc PS360 ---
EXAM: CHEST-2 VIEWS HISTORY: AMS TECHNIQUE: Two views COMPARISON: 09/04/2016 FINDINGS: The lungs are well expanded. The heart is not enlarged. The vessels are not distended. There are no infiltrates. No pleural effusions. IMPRESSION: No acute abnormality. Electronically signed by Teddy Calderon 07/12/2019 4:17 PM
[2019-07-12] MEDS ORDERED: HUMULIN R IV ONE ×2 (16:23→17:10)
[2019-07-12 16:29] LABS: ACETONE SERUM SMALL (NEGATIVE)
[2019-07-12 16:37] LABS: ALLEN TEST YES; BE -21.8 mmoll (-3.0-3.0); METHB 1.1 % (0.0-1.5); O2(CT) 11.2 mL/dL (15.0-23.0); SAMPLE BLOOD; SAO2 50.5 % (95.0-100.0); THB 16.2 g/dL (11.5-17.4)
[2019-07-12 16:43] LABS: PCO2(98.6) 34 mmHg (35-45); PO2(98.6) 25 mmHg (60-100); pH(98.6) 7.01 (7.35-7.45)
[2019-07-12 16:44] LABS: HCO3-(ACT) 6.4 mmoll (20.0-26.0); MODALITY ROOM AIR; O2HB 49.5 % (95.0-99.0)
[2019-07-12] MEDS ORDERED: ZOFRAN IV PRN (17:08)
[2019-07-12] MEDS ORDERED: D50W SYRINGE IV PRN ×2 (17:10→17:49)
[2019-07-12] MEDS: NORCO-10 PO SCH (17:15)
[2019-07-12] MEDS ORDERED: HUMULIN R 100 UNIT in NS 100 ML IV SCH (17:15)
[2019-07-12] MEDS ORDERED: NS 1,000 ML IV SCH (17:15)
--- NOTE | 2019-07-12 17:54 | HISTORY AND PHYSICAL ---
HISTORY OF PRESENT ILLNESS: Phani is a 43-year-old who started acting a little confused and obtunded and noted her blood sugars were above 400 and brought her to the emergency room. She has had trouble with diabetic ketoacidosis before. Has had admissions before. She is on an insulin pump. She has type 1 diabetes mellitus. She has a history of fibromyalgia, multiple sclerosis, and chronic lower back pain. She was here in August 2016. I think she is followed by Dr. Atkinson. REVIEW OF SYSTEMS: They have not noticed fever or chills.HEENT: No change in visual or hearing acuity. Respiratory: No increased work of breathing or dyspnea. Cardiovascular: No chest pain or tachy palpitation. Gastrointestinal and Genitourinary: No gross hematuria dysuria. Musculoskeletal/Neurologic: No changes. She does have underlying MS. Endocrinologic/Hemologic: No significant history other than her diabetes. FAMILY HISTORY: Unremarkable. She has a grandfather who does have a history of coronary artery disease. There is a family history of coronary artery disease and there is history for diabetes mellitus type 1. SOCIAL HISTORY: She lives with her mother. She at 1 time was smoking. I do not know if she has quit yet. No alcohol or illicit drugs. PHYSICAL EXAMINATION: GENERAL: In the emergency room she is awake and alert. VITAL SIGNS: Temperature 97.1 degrees, pulse 138, respirations 18, blood pressure 109/69. Weight 122 pounds. HEENT: Pupils are equal and round. Conjunctivae pink. Oral and nasal mucosa unremarkable. NECK: Supple. No adenopathy. LUNGS: Clear in all lung carrizales. CARDIOVASCULAR: Regular rhythm and rate without murmur or S3. ABDOMEN: Soft. SKIN: Warm and dry, without rashes. LABORATORY: White blood cell count 26,570, hematocrit is 53, platelet count 510,000. Sodium 132, potassium 5.2, chloride 94, BUN 36, creatinine 2.0, phosphorus is 8.2. AST and ALT 16 and 13 respectively. Alkaline phosphatase 151. Plasma lactate was 5.5. Her blood gas, pH was 7.01, pCO2 34, PO2 was 25; I wonder if these were venous gases. This was on room air. She had a CT of her head without contrast, unremarkable. She had a chest x-ray, no sign of infiltrates or abnormality. ASSESSMENT AND PLAN: Diabetic ketoacidosis in the patient with diabetes mellitus type 1. I think she did not get her insulin today. Her bicarb was 8. What I think is a venous blood gas was 7.01. Lactate level is 4. So we will put her on diabetic ketoacidosis protocol. I will give her some IV insulin and liberal fluids. Follow her electrolytes, particularly her potassium and magnesium. I put her on some supplemental O2. Then hopefully advance her to pattern scale with subcutaneous insulin. She has continuous insulin at home, an insulin pump, but I think somehow was not able to get that today. So we will see if we can make sure she has her insulin. She was taking some Diflucan 100 mg p.o. daily. I think we can continue that. I think we can stop her doxycycline. She gets [place] for pain one tablet p.o. t.i.d. I guess we can continue that. cc: Gabriel Burgos MD
[2019-07-12] MEDS: NS 1,000 ML IV SCH ×3 (18:15→19:57)
[2019-07-12 19:14] LABS: FREE T4 1.12 ng/dL (0.93-1.70); TSH 3.8 uIUmL (0.27-4.20)
[2019-07-12] MEDS: D5 1/2 NS 1,000 ML IV PRN (19:57)
[2019-07-12 20:20] LABS: URINE SOURCE CLEAN CATCH
[2019-07-12] MEDS ORDERED: CARDIZEM IV ONE (20:32)
[2019-07-12] MEDS ORDERED: LEVAQUIN 750 MG/D5W 750 MG/150 ML IVPB IV ONE (20:34)
[2019-07-12 20:35] LABS: CALCIUM 8.1 mg/dL (8.8-10.2); CREATININE 1.4 mg/dL (0.5-0.9); MAGNESIUM 2.3 mg/dL (1.5-2.7); PHOSPHORUS 1.6 mg/dL (2.7-4.5); POTASSIUM 5.2 mmol/L (3.5-5.1)
[2019-07-12 20:39] LABS: UR AMPHETAMINES QUAL NONE DETECTED (NONE DETECT); UR BARBITUATES QUAL NONE DETECTED (NONE DETECT); UR BENZODIAZEPIN QUAL NONE DETECTED (NONE DETECT); UR CANNABINOIDS QUAL NONE DETECTED (NONE DETECT); UR COCAINE QUAL NONE DETECTED (NONE DETECT); UR METHADONE QUAL NONE DETECTED (NONE DETECT); UR OPIATES QUAL NONE DETECTED (NONE DETECT); UR OXYCODONE QUAL NONE DETECTED (NONE DETECT); UR PCP QUAL NONE DETECTED (NONE DETECT)
[2019-07-12 20:48] LABS: UR EPITHELIAL CELLS <10 /HPF (<10); URINE BACTERIA NEGATIVE /HPF; URINE RBC <10 /HPF (<10); URINE WBC <10 /HPF (<10)
[2019-07-12 20:51] LABS: BILIRUBIN URINE NEGATIVE (NEGATIVE); BLOOD URINE TRACE (NEGATIVE); COLOR YELLOW; GLUCOSE URINE >1000 mg/dL (NEGATIVE); KETONE URINE 80 mg/dL (NEGATIVE); LEUKOCYTES URINE NEGATIVE (NEGATIVE); NITRITE URINE NEGATIVE (NEGATIVE); PROTEIN URINE TRACE mg/dL (NEGATIVE); SP GRAVITY URINE 1.018; TURBIDITY URINE CLEAR (CLEAR); UROBILINOGEN URINE NORMAL (NORMAL)
[2019-07-12] MEDS: NEURONTIN PO SCH (21:00)
--- NOTE | 2019-07-12 21:57 | Diag Imaging Result Doc PS360 ---
EXAM: CT ABDOMEN/PELVIS W/O CONTRAST INDICATION: abd pain, urinary retention TECHNIQUE: This exam was performed using automated exposure control, adjustment of mA or kV according to patient size, and/or use of iterative reconstruction technique. COMPARISON: None. FINDINGS: There are calcified granulomata in the liver and spleen. The liver and spleen are unremarkable, otherwise. The gallbladder, pancreas, and adrenal glands are unremarkable. There are no renal or ureteral stones identified and there is no hydronephrosis. There is a Flanagan catheter in the urinary bladder. The urinary bladder is unremarkable, otherwise. There are several phleboliths in the pelvis. The reproductive tract is unremarkable as imaged. The appendix is normal. No focal bowel wall thickening or bowel obstruction is appreciated. The remainder of the GI tract is unremarkable. There is mild atherosclerotic calcification at the distal aorta. No focal inflammatory changes, free abdominal gas, or free fluid is identified. There is no evidence of acute osseous abnormality. IMPRESSION: No renal or ureteral stones, evidence of acute obstructive uropathy, or other definite acute pathology by unenhanced CT. Electronically signed by Zach Ramirez 07/12/2019 9:54 PM
[2019-07-12] MEDS: LOVENOX SUBQ SCH (22:37)
[2019-07-13 00:03] LABS: CALCIUM 8.3 mg/dL (8.8-10.2); CREATININE 1.2 mg/dL (0.5-0.9); MAGNESIUM 2.2 mg/dL (1.5-2.7); PHOSPHORUS 1.9 mg/dL (2.7-4.5); POTASSIUM 5.2 mmol/L (3.5-5.1)
[2019-07-13] MEDS ORDERED: LANTUS INSULIN SUBQ ONE ×2 (00:15→13:41)
[2019-07-13] MEDS ORDERED: HUMULIN R SUBQ ONE (00:16)
[2019-07-13] MEDS: NORCO-10 PO SCH ×2 (01:33→09:25)
[2019-07-13] MEDS: HUMULIN R SUBQ SCH ×9 (03:12→22:04)
--- NOTE | 2019-07-13 04:51 | EKG Report ---
Test Performed on : 07/12/2019 8:37:44 PM Test Reason : Tachycardia Blood Pressure : / mmHG Vent. Rate : 140 BPM Atrial Rate : 140 BPM P-R Int : 086 ms QRS Dur : 116 ms QT Int : 348 ms P-R-T Axes : 072 121 061 degrees QTc Int : 531 ms Sinus tachycardia. with short MS Right bundle branch block Left posterior fascicular block Bifascicular block Abnormal ECG When compared with ECG of 04-SEP-2016 01:55, No significant change was found Unconfirmed Result
[2019-07-13] MEDS: D5 1/2 NS 1,000 ML IV PRN ×2 (05:03→12:27)
[2019-07-13 06:31] LABS: BASO# 0.06 X1000 (0.0-0.2); BASO% 0.3 % (0.0-0.8); EOS# 0.01 X1000 (0.0-0.7); EOS% 0.1 % (0.0-10.0); HEMATOCRIT 39.6 % (37.0-47.0); HEMOGLOBIN 13.2 g/dL (12.0-16.0); IMM GRAN# 0.21 X1000 (0.0-0.04); IMM GRAN% 1.1 % (0.0-0.5); LYMPH# 5.98 X1000 (1.2-3.4); LYMPH% 30.6 % (20.5-51.1); MCH 30.2 PG (27-31); MCHC 33.3 g/dL (33-37); MCV 90.6 FL (81-99); MONO# 2.71 X1000 (0.11-0.59); MONO% 13.9 % (1.7-9.3); MPV 9.7 FL (7.4-10.4); NEUT# 10.59 X1000 (1.4-6.5); PLT 357 X1000 (130-400); RBC 4.37 XMIL (4.2-5.4); RDW 14.2 % (11.5-14.5); WBC 19.56 X1000 (4.8-10.8)
[2019-07-13 07:22] LABS: BANDS 1 % (0-1); LYMPHS 25 % (21-51); MONO 12 % (1-9); NRBC 1 % (0-0); SEGS 62 % (42-75)
[2019-07-13 07:45] LABS: AGAP 18; ALB/GLOB RATIO 1.7; ALBUMIN 3.4 g/dL (3.5-5.0); ALKALINE PHOSPHATASE 93 U/L (32-104); BUN 19 mg/dL (8-22); CALCIUM 7.6 mg/dL (8.8-10.2); CHLORIDE 111 mmol/L (98-107); COSMO 287; CREATININE 0.9 mg/dL (0.5-0.9); ESTIMATED GFR > 60; GLUCOSE 153 mg/dL (70-104); GOT 12 U/L (10-30); GPT 7 U/L (10-36); POTASSIUM 4.2 mmol/L (3.5-5.1); SODIUM 141 mmol/L (136-145); TCO2 12 mmol/L (25-35); TOTAL BILIRUBIN 0.28 mg/dL (0.20-1.00); TOTAL PROTEIN 5.4 g/dL (6.3-8.3)
[2019-07-13] MEDS: DIFLUCAN PO SCH (09:25)
[2019-07-13 11:37] LABS: AGAP 11; BUN 14 mg/dL (8-22); CALCIUM 7.7 mg/dL (8.8-10.2); CHLORIDE 114 mmol/L (98-107); COSMO 287; CREATININE 0.8 mg/dL (0.5-0.9); ESTIMATED GFR > 60; GLUCOSE 161 mg/dL (70-104); POTASSIUM 3.8 mmol/L (3.5-5.1); SODIUM 142 mmol/L (136-145); TCO2 17 mmol/L (25-35)
[2019-07-13] MEDS ORDERED: NORCO-10 PO PRN (14:13)
--- NOTE | 2019-07-13 14:28 | PROGRESS NOTE ---
DATE: 07/13/2019 SUBJECTIVE: She looks better. No major issues. OBJECTIVE: Vital Signs: Blood pressure is 128/65, heart rate of 105, respiratory rate of 20, temperature 98.3 degrees, saturating 100% on room air. Cardiovascular: Regular rate and rhythm. Pulmonary: Bilateral breath sounds. Clear to auscultation. GI: Soft, nontender, nondistended. Bowel sounds are positive. LABORATORY DATA: White count is trending downward at 19,000, hemoglobin and hematocrit 13 and 39, platelets 357,000. Bicarb is up to 17. Gap is closed at 11. Sugars have been in the 150 range. PROBLEM LIST: 1. Early diabetic ketoacidosis, which has since resolved. We will continue to follow closely, switch her to sliding scale, and monitor her closely. I think she is probably stable for the floor. 2. Leukocytosis, which may be reactive. All her studies at this point are negative. We will continue to observe, hydrate. She got some antibiotics, but we did not maintain those, except for an antifungal, but we will continue to monitor. cc: Roosevelt Sol MD
[2019-07-13] MEDS: CYMBALTA PO SCH (14:33)
[2019-07-13 15:32] LABS: BLOOD TYPE VENOUS
[2019-07-13 16:22] LABS: AGAP 10; ALB/GLOB RATIO 1.7; ALBUMIN 3.1 g/dL (3.5-5.0); ALKALINE PHOSPHATASE 81 U/L (32-104); BUN 13 mg/dL (8-22); CALCIUM 7.7 mg/dL (8.8-10.2); CHLORIDE 111 mmol/L (98-107); COSMO 285; CREATININE 0.9 mg/dL (0.5-0.9); ESTIMATED GFR > 60; GLUCOSE 166 mg/dL (70-104); GOT 12 U/L (10-30); GPT 6 U/L (10-36); POTASSIUM 3.8 mmol/L (3.5-5.1); SODIUM 141 mmol/L (136-145); TCO2 20 mmol/L (25-35); TOTAL BILIRUBIN 0.46 mg/dL (0.20-1.00); TOTAL PROTEIN 4.9 g/dL (6.3-8.3)
[2019-07-13] MEDS: LOVENOX SUBQ SCH (17:02)
[2019-07-13] MEDS: NEURONTIN PO SCH (22:05)
[2019-07-14 06:11] LABS: BASO# 0.08 X1000 (0.0-0.2); BASO% 0.6 % (0.0-0.8); EOS% 0.7 % (0.0-10.0); HEMOGLOBIN 13.2 g/dL (12.0-16.0); IMM GRAN% 0.7 % (0.0-0.5); LYMPH# 6.59 X1000 (1.2-3.4); LYMPH% 48.5 % (20.5-51.1); MCH 30.2 PG (27-31); MCHC 33.8 g/dL (33-37); MCV 89.2 FL (81-99); MPV 9.4 FL (7.4-10.4); NEUT# 5.22 X1000 (1.4-6.5); NEUT% 38.5 % (42.2-75.2); PLT 289 X1000 (130-400); RBC 4.37 XMIL (4.2-5.4); RDW 14.3 % (11.5-14.5); WBC 13.59 X1000 (4.8-10.8)
[2019-07-14] MEDS: HUMULIN R SUBQ SCH ×3 (06:23→11:22)
[2019-07-14] MEDS: CYMBALTA PO SCH ×2 (07:55→08:11)
[2019-07-14] MEDS: DIFLUCAN PO SCH ×2 (07:55→08:11)
[2019-07-14] MEDS: VITAMIN D PO SCH ×2 (07:55→08:10)
[2019-07-14] MEDS ORDERED: INSULIN PEN NEEDLES ONE (08:18)
[2019-07-14] MEDS ORDERED: TOUJEO SOLOSTAR SUBQ SCH (09:00)
[2019-07-14] MEDS ORDERED: JARDIANCE PO SCH (09:00)
[2019-07-14 11:55] VITALS: BP 126/81
--- NOTE | 2019-07-15 10:21 | DISCHARGE SUMMARY ---
ADMISSION DATE: 07/12/2019 DISCHARGE DATE: 07/14/2019 DISCHARGE DIAGNOSES: 1. Early diabetic ketoacidosis, but did not end up on an insulin drip. 2. Leukocytosis which was likely reactive. HOSPITAL COURSE: The patient is 43. She had confusion. Sugars were very high. She came in for evaluation. Per the sister, who is a nurse herself and I talked to on the day of discharge, she is a very brittle diabetic. She does have frequent lows, frequent highs. She is on the Toujeo and the Jardiance. According to this, though, she is on glargine. In any case, patient came in. She had a low pH, white count of 26,000. No focal infection. This was a venous blood gas. Her initial sugar was 346. She did end up being on an insulin drip. I do not think her acetone was small, but her gap was 18 and her bicarbonate was 12, but then the repeat showed a carbon dioxide of 20 with a gap of 10. So she was put back on her Lantus which she did well on, but then this morning she bottomed out in the 20s. I am not sure that she had gotten extra dose of Lantus on top of her regular dose, but she was tolerating p.o. without difficulty. Her white count has dropped down to 13,000, again negative source. Urine and blood cultures are negative. CT of the abdomen is negative. Chest x-ray is negative. Head CT was negative. So, she was felt stable for discharge. I did encourage her to follow up with Endocrinology. DISCHARGE MEDICATIONS: 1. Cymbalta 60 daily. 2. Focalin 10 b.i.d. 3. [place] p.r.n. 4. Jardiance 25 daily. 5. Glargine 38 daily. 6. Vitamin D 3. DISCHARGE CONDITION: Stable. TIME SPENT: 32 minute discharge. cc: MD Radha Waite MD
== END 2019-07-14 15:03 | disposition home or self-care (01) | DRG 639 ==
LOC: ED 14:14 → SUATTDRO 18:26 → EDIPHOLD 18:26 → 2N 22:30 → 4N 07-13 17:59
PROVIDERS: ATTEND Internal Medicine

== ENCOUNTER 2019-08-21 09:46 | Inpatient (IN) ==
--- NOTE | 2019-08-21 09:47 | PROVIDER DOCUMENTATION ---
HPI-General Adult - General Stated Complaint: HIGH BLOOD SUGAR Time Seen by Provider: 08/21/19 09:47 Source: patient Allergies/Adverse Reactions: Patient Allergies Allergy/AdvReac Type Severity Reaction Status Date / Time cefaclor [From Ceclor] Allergy Unknown Unknown Verified 09/04/16 01:50 Home Medications: Home Medication List Medication Instructions Recorded Confirmed Last Taken Type Cholecalciferol (Vitamin D3) 5,000 unit PO DAILY 07/12/19 07/12/19 Unknown History [Vitamin D3] Dexmethylphenidate HCl [Focalin] 10 mg PO BID 07/12/19 07/12/19 Unknown History Duloxetine [Cymbalta] 90 mg PO DAILY 07/12/19 07/13/19 Unknown History Empagliflozin [Jardiance] 25 mg PO QAM 07/12/19 07/12/19 Unknown History Hydrocodone/Acetaminophen 1 tab PO Q12H PRN PRN 07/12/19 07/12/19 Unknown History [Hydrocodone-Acetamin 7.5-325] Insulin Glargine,Hum.rec.anlog 38 units SUBQ DAILY 07/12/19 07/13/19 Unknown History [Tyler Jacobson] - History of Present Illness -Gen Adult Nature of Presenting Problems: Pt. is 43 yof that presents with AMS and elevated blood sugar. with patient reports she is diabetic and was admitted one month ago for DKA. Pt. is clearly altered at time of exam. denies any injury or other complaints. Location of Pain/Injury: reports: none. denies: head, face, mouth, neck, chest, upper extremity, hand(s), abdomen, back, pelvis, genitalia, lower extremity, feet, upper body, lower body, generalized, other Pain Radiation: reports: no radiation. denies: arm(s), back, buttocks, chest, epigastric, feet, groin, jaw, flank (L), legs (lower), LLQ, LUQ, neck, periumbilical, flank (R), RLQ, RUQ, shoulder(s), scapula, scrotal, sternal notch, suprapubic, legs (upper), urethral, vaginal, other Quality of Pain: reports: none. denies: aching, indigestion, throbbing Severity: reports: severe. denies: mild, moderate Onset/Duration: reports: unsure Timing: reports: still present. denies: improving, intermittent, getting worse Context/Activities at Onset: reports: none. denies: light activity, moderate activity, vigorous activity, recent emotional stress, recent physical stress, recent trauma history, possible bad food, cold exposure, eating, out of country travel, rest, sleep, sexual activity, other Modifying Factors: improves with: nothing Associated Symptoms: reports: other (AMS). denies: denies symptoms, anxiety, arm pain, back/neck pain, chest pain, constipation, cough, diaphoresis, diarr hea, dizziness, EENT symptoms, fatigue, fever/chills, genitourinary problems, headaches, heartburn, joint pain, loss of appetite, malaise, muscle aches, sinus congestion/drainage, nausea, rash, seizure, shortness of breath, sensory/motor loss, pain with inspiration, swelling/mass in abdomen, syncope, vomiting, weakness, trouble walking Similar Symptoms Previously?: Yes Recently seen or treated by another doctor?: No Review of Systems - Adult - REVIEW OF SYSTEMS - ADULT Constitutional: reports: no symptoms reported Eyes: reports: no symptoms reported Ears, Nose, Mouth & Throat: reports: no symptoms reported Cardiovascular: reports: see HPI, other (Tachycardia) Respiratory: reports: see HPI, other (Increased rate) Gastrointestinal: reports: no symptoms reported Genitourinary: reports: no symptoms reported Musculoskeletal: reports: no symptoms reported Integumentary: reports: no symptoms reported Neurological: reports: see HPI, other (AMS). denies: dizziness/vertigo, numbness Psychiatric: reports: no symptoms reported Past History - Adult - PAST MEDICAL HISTORY-ADULT Review of Records: reports: Old Records Reviewed, Nursing Assessment Review, Medications Reviewed, Social history reviewed & non-contributory. Major Childhood Illnesses: reports: denies history Endocrine/Immune: reports: Diabetes - PRIOR SURGERIES/PROCEDURES Surgical/Procedure History: reports: orthopedic (extremity) - IMMUNIZATION STATUS Childhood Immunizations: See Nurse Assessment Flu Vaccine: See Nurse Assessment - FAMILY HISTORY Family History: reviewed, not pertinent, MS - SOCIAL HISTORY Smoking: non-smoker Physical Exam-General - PHYSICAL EXAM-ADULT Initial Vital Signs Reviewed: Yes - CONSTITUTIONAL General Appearance: severe distress, thin, lethargic. negative: slow to respond, combative - EYES Eyes: PERRL/EOMI, pink conjunctivae - HEAD, EARS, NOSE, MOUTH & THROAT HENMT: normocephalic/atraumatic, moist mucous membranes - NECK Neck: supple, normal inspection - RESPIRATORY Respiratory: lungs clear, normal breath sounds, increased rate ([place] Respirations). negative: crackles, rales, rhonchi - CARDIOVASCULAR Cardiovascular: regular rate, rhythm, no edema, tachycardia. negative: extra beats, friction rub, irregularly irregular - GASTROINTESTINAL (ABDOMEN) Abdominal Exam: normal bowel sounds, non tender, soft - LYMPHATIC Lymphatic: no adenopathy - MUSCULOSKELETAL Back Exam: normal inspection, no CVA tenderness, no vertebral tenderness Extremity: normal inspection. negative: erythema, inflammation, swelling, tenderness Peripheral Pulses: radial (R): 2+, radial (L): 2+ - SKIN Integumentary: pallor. negative: cyanosis, mottled, tenderness - NEUROLOGIC Neurologic: grossly normal, no motor/sensory deficits - PSYCHIATRIC Psych/Mental Status: disoriented x 3. negative: anxious, paranoid, tearful Progress - PLAN OF CARE/RESULTS Progress/Plan/Lab Results: Laboratory Tests 08/21/19 08/21/19 08/21/19 09:54 10:20 10:20 WBC RBC Hgb Hct MCV MCH MCHC RDW Std Deviation Plt Count MPV Specimen Type Sample Site pH pCO2 pO2 HCO3 Base Excess Oxyhemoglobin ABG O2 Sat (Calculated) ABG O2 Saturation ABG Carboxyhemoglobin ABG Methemoglobin Gabriel Test A-a O2 Difference Total Hemoglobin Lactate Blood Gas Modality FiO2 % Sodium 139 Potassium 5.1 Chloride 94 L Carbon Dioxide 4 L Anion Gap 41 BUN 49 H Creatinine 2.1 H Estimated GFR/1.73 m2 26 BUN/Creatinine Ratio 23 Glucose 435 H* POC Glucose 440 H D Calculated Osmolality 309 Calcium 9.2 Phosphorus 7.2 H Magnesium 3.0 H Total Bilirubin 0.30 AST 13 ALT 13 Alkaline Phosphatase 141 H Creatine Kinase 49 Troponin T High Sens Total Protein 7.6 Albumin 4.7 Globulin 2.9 Albumin/Globulin Ratio 1.6 Plasma Lactate 2.2 Urine Source Urine Color Urine Turbidity Urine pH Ur Specific [place] Urine Protein Ur Glucose (Stick) Ur Ketones (Stick) Urine Blood Urine Nitrite Urine Bilirubin Urobilinogen Dipstick Urine Leukocytes Urine WBC (Auto) Urine RBC (Auto) U Epithel Cells (Auto) Urine Bacteria (Auto) Urine Crystals Small Round Cells Urine Casts Urine Yeast-like Cells Urine Opiates Screen Ur Oxycodone Screen Ur Methadone, Qual Ur Barbiturates Screen Ur Phencyclidine Scrn Ur Amphetamines Screen U Benzodiazepines Scrn Urine Cocaine Screen U Cannabinoids Screen Acetone Level MODERATE A 08/21/19 08/21/19 08/21/19 10:20 10:20 10:25 WBC 28.92 H RBC 5.68 H Hgb 16.9 H Hct 53.2 H MCV 93.7 MCH 29.8 MCHC 31.8 L RDW Std Deviation 14.7 H Plt Count 481 H MPV 10.0 Specimen Type ARTERIAL Sample Site L RADIAL pH 7.05 L* pCO2 10 L* pO2 126 H HCO3 5.2 L Base Excess -25.3 L Oxyhemoglobin 97.1 ABG O2 Sat (Calculated) 23.6 H ABG O2 Saturation 98.7 ABG Carboxyhemoglobin 0.90 ABG Methemoglobin 0.7 Gabriel Test YES A-a O2 Difference 11.0 Total Hemoglobin 17.2 Lactate 2.10 Blood Gas Modality ROOM AIR FiO2 % 21.0 Sodium Potassium Chloride Carbon Dioxide Anion Gap BUN Creatinine Estimated GFR/1.73 m2 BUN/Creatinine Ratio Glucose POC Glucose Calculated Osmolality Calcium Phosphorus Magnesium Total Bilirubin AST ALT Alkaline Phosphatase Creatine Kinase Troponin T High Sens 17 Total Protein Albumin Globulin Albumin/Globulin Ratio Plasma Lactate Urine Source Urine Color Urine Turbidity Urine pH Ur Specific [place] Urine Protein Ur Glucose (Stick) Ur Ketones (Stick) Urine Blood Urine Nitrite Urine Bilirubin Urobilinogen Dipstick Urine Leukocytes Urine WBC (Auto) Urine RBC (Auto) U Epithel Cells (Auto) Urine Bacteria (Auto) Urine Crystals Small Round Cells Urine Casts Urine Yeast-like Cells Urine Opiates Screen Ur Oxycodone Screen Ur Methadone, Qual Ur Barbiturates Screen Ur Phencyclidine Scrn Ur Amphetamines Screen U Benzodiazepines Scrn Urine Cocaine Screen U Cannabinoids Screen Acetone Level 08/21/19 08/21/19 10:45 11:08 WBC RBC Hgb Hct MCV MCH MCHC RDW Std Deviation Plt Count MPV Specimen Type Sample Site pH pCO2 pO2 HCO3 Base Excess Oxyhemoglobin ABG O2 Sat (Calculated) ABG O2 Saturation ABG Carboxyhemoglobin ABG Methemoglobin Gabriel Test A-a O2 Difference Total Hemoglobin Lactate Blood Gas Modality FiO2 % Sodium Potassium Chloride Carbon Dioxide Anion Gap BUN Creatinine Estimated GFR/1.73 m2 BUN/Creatinine Ratio Glucose POC Glucose Calculated Osmolality Calcium Phosphorus Magnesium Total Bilirubin AST ALT Alkaline Phosphatase Creatine Kinase Troponin T High Sens Total Protein Albumin Globulin Albumin/Globulin Ratio Plasma Lactate Urine Source CATH Urine Color YELLOW Urine Turbidity CLEAR Urine pH 5.5 Ur Specific [place] 1.023 Urine Protein 30 A Ur Glucose (Stick) >1000 A Ur Ketones (Stick) 80 A Urine Blood TRACE A Urine Nitrite NEGATIVE Urine Bilirubin NEGATIVE Urobilinogen Dipstick NORMAL Urine Leukocytes NEGATIVE Urine WBC (Auto) <10 Urine RBC (Auto) <10 U Epithel Cells (Auto) <10 Urine Bacteria (Auto) NEGATIVE Urine Crystals NONE SEEN Small Round Cells NONE SEEN Urine Casts NONE SEEN Urine Yeast-like Cells NONE SEEN Urine Opiates Screen NONE DETECTED Ur Oxycodone Screen NONE DETECTED Ur Methadone, Qual NONE DETECTED Ur Barbiturates Screen NONE DETECTED Ur Phencyclidine Scrn NONE DETECTED Ur Amphetamines Screen NONE DETECTED U Benzodiazepines Scrn NONE DETECTED Urine Cocaine Screen NONE DETECTED U Cannabinoids Screen NONE DETECTED Acetone Level Discussed plan of care with patient family. Family agrees with plan and verbalizes understanding. Result Diagrams: 08/21/19 10:20 08/21/19 10:20 - EKG 1 Time of EKG reading by physician:: 11:11 EKG Read and Signed by:: Jose Carlos Contreras EKG Interpretation (*Must complete 3 of following elements*): Abnormal Rate: 139 Rhythm: ST with RBBB Alma: normal QRS: RBB WA Interval: shortened - XRAY 1 XRAY Study: Chest ([facility] - [address] [place] [address] [place] [id number] [facility] - [address] [place] [address] Department of Imaging Patient: RENAY WASSERMAN Date: 08/21/19MR#: [id number] : 1975ADM Status: REG ERAt#: [id number] Age/Sex: 43/FRoom/Bed: Loc: ED Ordering Physician: Jasmin Rios Family Physician: Radha Atkinson MD Reason for Procedure: AMS ___ Signed EXAM: CHEST-PORTABLE HISTORY: AMS TECHNIQUE: Single view COMPARISON: 07/12/2019 FINDINGS: The lungs are well expanded. The heart is not enlarged. The vessels are not distended. There are no infiltrates. No effusion identified. IMPRESSION: Negative exam. Electronically signed by Teddy Calderon 08/21/2019 11:40 AM 08/21/19 1140 Interpreting Physician: Teddy Calderon MD Dictated Date/Time: 08/21/19 1140 cc: Jasmin Rios; Radha Atkinson MD) XRAY Interpretation: See note - CONSULTS/PCP/HOSPITALIST Notification #1 *Consult/PCP/Hospitalist*: Shruti for Dr. Burgos Time Discussed: 11:55 Reason/Comments: Admission Consult Disposition: Will see in ED, Admit Departure - Departure Date of Disposition Decision: 08/21/19 Time of Disposition Decision: 10:41 DIAGNOSIS: Dehydration, Acute renal insufficiency DKA (diabetic ketoacidoses) Qualifiers: Diabetes mellitus type: type 1 Diabetes mellitus complication detail: without coma Qualified Code(s): E10.10 - Type 1 diabetes mellitus with ketoacidosis without coma Leukocytosis Qualifiers: Leukocytosis type: unspecified Qualified Code(s): D72.829 - Elevated white blood cell count, unspecified Disposition: ADMITTED INPATIENT 09 Certified Medical Emergency: Emergent Condition: Serious Referrals and Follow-Ups: Radha Atkinson MD [Primary Care Provider] - - Critical Care Note This patient required my direct & personal management of CC.: Yes Total Time (mins): 45 Critical Care Statement: This patient required my direct personal management to treat or rule out processes, the absence of which, could potentiallly result in sudden, clinically significant life or limb threatening deterioration. Attestation - Physician/ TARUN Attestation Patient care was provided by Advanced Practice Provider:: Yes Advanced Practice Provider:: Jasmin Rios Advanced Practice Provider documentation review:: The Mid-level provider documentation, treatment plan and medical decision making was reviewed by the physician who agrees with all treatment and medical decision making by the MLP. The physician spent face to face time with patient:: No Advanced Practice Provider documentation review:: Supervising physician onsite and consulted in the evaluation and care of this patient. The physician did not have a face to face encounter with the patient.
[2019-08-21] MEDS ORDERED: SODIUM PHOSPHATE 30 MMOL in D5W 250 ML IV PRN ×2 (10:10→13:37)
[2019-08-21] MEDS ORDERED: POTASSIUM CHLORIDE 10% LIQUID PO PRN ×2 (10:10→13:37)
[2019-08-21] MEDS ORDERED: SODIUM BICARBONATE 8.4% 100 MEQ in STERILE WATER INJ. 500 ML IV PRN ×2 (10:10→13:37)
[2019-08-21] MEDS ORDERED: POTASSIUM CHLORIDE 20 MEQ/SWI 20 MEQ/100 ML IVPB IV PRN ×3 (10:10→13:37)
[2019-08-21] MEDS ORDERED: D50W SYRINGE IV PRN ×2 (10:10)
[2019-08-21] MEDS ORDERED: HUMULIN R IV ONE (10:10)
[2019-08-21] MEDS ORDERED: NS 1,000 ML IV ONE (10:10)
[2019-08-21] MEDS ORDERED: POTASSIUM CHLORIDE 20% LIQUID PO PRN ×2 (10:10→13:37)
[2019-08-21] MEDS ORDERED: MAGNESIUM SULFATE 2 GM/S.W.I. 2 GM/50 ML IVPB IV PRN ×2 (10:10→13:37)
[2019-08-21] MEDS: NS 1,000 ML IV SCH ×4 (10:15→21:47)
[2019-08-21] MEDS ORDERED: HUMULIN R 100 UNIT in NS 100 ML IV SCH (10:15)
[2019-08-21 10:34] LABS: ALLEN TEST YES; BE -25.3 mmoll (-3.0-3.0); BLOOD TYPE ARTERIAL; HCO3-(ACT) 5.2 mmoll (20.0-26.0); METHB 0.7 % (0.0-1.5); O2(CT) 23.6 mL/dL (15.0-23.0); O2HB 97.1 % (95.0-99.0); PO2(98.6) 126 mmHg (60-100); SAMPLE BLOOD; SAO2 98.7 % (95.0-100.0); THB 17.2 g/dL (11.5-17.4)
[2019-08-21 10:35] LABS: MODALITY ROOM AIR; PCO2(98.6) 10 mmHg (35-45); pH(98.6) 7.05 (7.35-7.45)
[2019-08-21 10:55] LABS: ACETONE SERUM MODERATE (NEGATIVE)
[2019-08-21 11:01] LABS: AGAP 41; ALB/GLOB RATIO 1.6; ALBUMIN 4.7 g/dL (3.5-5.0); ALKALINE PHOSPHATASE 141 U/L (32-104); BUN 49 mg/dL (8-22); CALCIUM 9.2 mg/dL (8.8-10.2); CHLORIDE 94 mmol/L (98-107); CK PROFILE 49 U/L (24-173); COSMO 309; CREATININE 2.1 mg/dL (0.5-0.9); ESTIMATED GFR 26; GLUCOSE 435 mg/dL (70-104); GOT 13 U/L (10-30); GPT 13 U/L (10-36); PHOSPHORUS 7.2 mg/dL (2.7-4.5); POTASSIUM 5.1 mmol/L (3.5-5.1); SODIUM 139 mmol/L (136-145); TCO2 4 mmol/L (25-35); TOTAL PROTEIN 7.6 g/dL (6.3-8.3)
[2019-08-21 11:17] LABS: URINE SOURCE CATH
[2019-08-21 11:22] LABS: HEMATOCRIT 53.2 % (37.0-47.0); HEMOGLOBIN 16.9 g/dL (12.0-16.0); MCH 29.8 PG (27-31); MCHC 31.8 g/dL (33-37); MCV 93.7 FL (81-99); RBC 5.68 XMIL (4.2-5.4); RDW 14.7 % (11.5-14.5); WBC 28.92 X1000 (4.8-10.8)
[2019-08-21 11:22] LABS: BILIRUBIN URINE NEGATIVE (NEGATIVE); BLOOD URINE TRACE (NEGATIVE); COLOR YELLOW; GLUCOSE URINE >1000 mg/dL (NEGATIVE); KETONE URINE 80 mg/dL (NEGATIVE); LEUKOCYTES URINE NEGATIVE (NEGATIVE); NITRITE URINE NEGATIVE (NEGATIVE); PH URINE 5.5; PROTEIN URINE 30 mg/dL (NEGATIVE); SP GRAVITY URINE 1.023; TURBIDITY URINE CLEAR (CLEAR); UR EPITHELIAL CELLS <10 /HPF (<10); URINE BACTERIA NEGATIVE /HPF; URINE RBC <10 /HPF (<10); URINE WBC <10 /HPF (<10); UROBILINOGEN URINE NORMAL (NORMAL)
[2019-08-21 11:31] LABS: UR AMPHETAMINES QUAL NONE DETECTED (NONE DETECT); UR BARBITUATES QUAL NONE DETECTED (NONE DETECT); UR BENZODIAZEPIN QUAL NONE DETECTED (NONE DETECT); UR CANNABINOIDS QUAL NONE DETECTED (NONE DETECT); UR COCAINE QUAL NONE DETECTED (NONE DETECT); UR METHADONE QUAL NONE DETECTED (NONE DETECT); UR OPIATES QUAL NONE DETECTED (NONE DETECT); UR OXYCODONE QUAL NONE DETECTED (NONE DETECT); UR PCP QUAL NONE DETECTED (NONE DETECT)
[2019-08-21 11:36] LABS: URINE CASTS NONE SEEN; URINE CRYSTALS NONE SEEN; URINE SMALL ROUND CELLS NONE SEEN; URINE YEAST NONE SEEN
--- NOTE | 2019-08-21 11:42 | Diag Imaging Result Doc PS360 ---
EXAM: CHEST-PORTABLE HISTORY: AMS TECHNIQUE: Single view COMPARISON: 07/12/2019 FINDINGS: The lungs are well expanded. The heart is not enlarged. The vessels are not distended. There are no infiltrates. No effusion identified. IMPRESSION: Negative exam. Electronically signed by Teddy Calderon 08/21/2019 11:40 AM
--- NOTE | 2019-08-21 12:19 | EKG Report ---
Test Performed on : 08/21/2019 10:54:54 AM Test Reason : ams Blood Pressure : / mmHG Vent. Rate : 141 BPM Atrial Rate : 141 BPM P-R Int : 136 ms QRS Dur : 118 ms QT Int : 344 ms P-R-T Axes : 092 112 056 degrees QTc Int : 526 ms Suspect arm lead reversal, interpretation assumes no reversal Sinus tachycardia. Right axis deviation Pulmonary disease pattern Right ventricular hypertrophy Abnormal ECG When compared with ECG of 12-JUL-2019 20:37, (Unconfirmed) (RBBB and left posterior fascicular block) is no longer present Unconfirmed Result
--- NOTE | 2019-08-21 13:12 | HISTORY AND PHYSICAL ---
Ms. Phani Murillo is a 43-year-old white female. She is followed by Dr. Radha Atkinson. She has insulin-dependent diabetes and has recently been admitted for DKA. She has been very faithful on her insulin, checks her sugars at least 4 times a day and presently they have her on 38 units of long-acting insulin, Lantus, I believe, in the morning and then she matches her insulin for the caloric intake. She was last admitted in July 12, 2019 for DKA. She has a history of fibromyalgia, multiple sclerosis, and chronic lower back pain. Was here in August as well for the same thing. FAMILY HISTORY: She has a grandfather who has a history of coronary artery disease. Family history of coronary artery disease and diabetes type 1 in her family. SOCIAL HISTORY: I think lives with her mother, she may be living with her at this time. She has a history of smoking. No alcohol or illicit drugs by report. She reports that she was doing fairly well yesterday, but stated that the sugar has been running a little higher and trying to match. She has not been eating much. She has been complaining of nausea, thought she had a viral gastroenteritis for the last couple days and then noticed confusion and feeling weak and nauseated and came to the emergency room. REVIEW OF SYSTEMS: Mainly got from her . She has not complained of any change in visual or hearing acuity. No adenopathy. No sore throat.Respiratory: No increased work of breathing. No pleuritic pain or cough. Cardiovascular: No chest pain or tachy palpitations reported. Endocrinologic/hemologic: She does have a history of diabetes. Gastrointestinal/Genitourinary: No change in her bowels. No complaints of dysuria or gross hematuria. No dark stools or blood in her stools that they are aware of. She has had some nausea, especially this morning. PHYSICAL EXAMINATION: VITAL SIGNS: In the emergency room temperature 98.3 degrees, pulse 150, respirations 26, blood pressure 102/66. HEENT: Pupils are equal and round. LUNGS: Clear in all lung carrizales. CARDIOVASCULAR: Regular rhythm and rate without murmur or S3. ABDOMEN: Soft. SKIN: Warm and dry. No sign of skin rashes. Weight is 125 pounds. CVP less than 6 cm. NECK: Supple. No cervical adenopathy. No sign of thyromegaly. LYMPH: No supraclavicular, axillary, or femoral adenopathy appreciated. BLOOD WORK: White count 07041, hematocrit is 53, platelet count 481,000. Sodium 139, potassium 5.1, chloride 94, BUN 49, creatinine 2.1, blood sugar 435. Calcium is 9.2, magnesium 3.0, phosphorus 7.2. Transaminase, AST is 13, ALT is 13, albumin is 4.7. Urine drug screen, moderate acetone, was negative for opiates, oxycodone, methadone, barbiturates, phencyclidine, amphetamines, benzodiazepines and cocaine, and cannabinoids. Urinalysis was less than 10 white blood cells, less than 10 red blood cells, no bacteria seen. Blood gas pH is 7.05, pCO2 is 10, PO2 is 126, O2 saturation is 98%. Chest x-ray negative. No sign of infiltrates. Lungs well expanded. Heart is not enlarged. Vessels not distended. No infiltrates. No effusion. ASSESSMENT AND PLAN: 1. Diabetic ketoacidosis. Her bicarb is 4, pH is 7.05. I put her on a DKA protocol to give her sugar and to give her insulin and fluids at this point. Electrolytes look good. We will follow those closely. Family is frustrated as why she is keeps going into DKA. 2. Could not rule out underlying bacterial infection, although I do not hear anything that leads us to that, but we will cover with broad-spectrum antibiotics. I will give her Zosyn and vancomycin and give her plenty of fluids. I think she will need to go to the unit. 3. History of fibromyalgia. Aware. 4. Really no other significant medical problems. Just seems to have very brittle diabetes. We will get blood cultures and urine looks unremarkable. She does have leukocytosis and this may be just demargination, but we will treat her for infection. cc: Gabriel Burgos MD
[2019-08-21] MEDS ORDERED: VANCOMYCIN IV PER PHARMACY MISC SCH (13:36)
[2019-08-21] MEDS ORDERED: ZOFRAN IV PRN (13:36)
[2019-08-21] MEDS ORDERED: TYLENOL PO PRN (13:37)
[2019-08-21] MEDS: D5 NS 1,000 ML IV PRN ×2 (15:05→22:34)
[2019-08-21 15:52] LABS: CALCIUM 7.2 mg/dL (8.8-10.2); CREATININE 1.4 mg/dL (0.5-0.9); MAGNESIUM 2.1 mg/dL (1.5-2.7); PHOSPHORUS 1.4 mg/dL (2.7-4.5)
[2019-08-21] MEDS: ZOSYN 3.375 GM in NS 50 ML IV SCH ×2 (16:26→20:29)
[2019-08-21 16:44] LABS: ALLEN TEST NO; BE -18.8 mmoll (-3.0-3.0); BLOOD TYPE ARTERIAL; HCO3-(ACT) 10.2 mmoll (20.0-26.0); O2(CT) 18.3 mL/dL (15.0-23.0); O2HB 96.5 % (95.0-99.0); PO2(98.6) 116 mmHg (60-100); SAMPLE BLOOD; SAO2 98.6 % (95.0-100.0); THB 13.4 g/dL (11.5-17.4); pH(98.6) 7.21 (7.35-7.45)
[2019-08-21] MEDS: SODIUM BICARBONATE 8.4% 100 MEQ in D5W 1,000 ML IV SCH (16:45)
[2019-08-21 16:47] LABS: MODALITY ROOM AIR; PCO2(98.6) 17 mmHg (35-45)
[2019-08-21] MEDS ORDERED: VANCOMYCIN 1,400 MG in NS 250 ML IV ONE (17:00)
[2019-08-21 18:29] LABS: ALLEN TEST YES; BE -18.1 mmoll (-3.0-3.0); BLOOD TYPE ARTERIAL; METHB 0.7 % (0.0-1.5); O2HB 97.1 % (95.0-99.0); PO2(98.6) 139 mmHg (60-100); SAMPLE BLOOD; SAO2 99.5 % (95.0-100.0); pH(98.6) 7.22 (7.35-7.45)
[2019-08-21 18:32] LABS: PCO2(98.6) 18 mmHg (35-45)
[2019-08-21 18:33] LABS: HCO3-(ACT) 10.8 mmoll (20.0-26.0); MODALITY ROOM AIR
[2019-08-21 20:14] LABS: INR 1.15; PROTIME 14.9 Seconds (11.0-16.0)
[2019-08-21 20:15] LABS: PTT 25.5 Seconds (22.3-41.8)
[2019-08-21 20:27] LABS: CREATININE 1.1 mg/dL (0.5-0.9); MAGNESIUM 2.1 mg/dL (1.5-2.7); PHOSPHORUS 1.8 mg/dL (2.7-4.5); POTASSIUM 4.1 mmol/L (3.5-5.1)
[2019-08-21 20:48] LABS: CALCIUM 6.9 mg/dL (8.8-10.2)
[2019-08-21] MEDS ORDERED: CALCIUM GLUCONATE 2 GM in NS 100 ML IV ONE (21:22)
[2019-08-21 21:57] LABS: URINE SOURCE CATH
[2019-08-21 22:01] LABS: UR EPITHELIAL CELLS <10 /HPF (<10); URINE BACTERIA NEGATIVE /HPF; URINE RBC <10 /HPF (<10); URINE WBC <10 /HPF (<10)
[2019-08-21 22:13] LABS: BILIRUBIN URINE NEGATIVE (NEGATIVE); BLOOD URINE TRACE (NEGATIVE); COLOR STRAW; GLUCOSE URINE >1000 mg/dL (NEGATIVE); KETONE URINE 80 mg/dL (NEGATIVE); LEUKOCYTES URINE NEGATIVE (NEGATIVE); NITRITE URINE NEGATIVE (NEGATIVE); PROTEIN URINE TRACE mg/dL (NEGATIVE); SP GRAVITY URINE 1.022; TURBIDITY URINE CLEAR (CLEAR); UROBILINOGEN URINE NORMAL (NORMAL)
[2019-08-21 22:18] LABS: ALLEN TEST YES; BE -11.9 mmoll (-3.0-3.0); BLOOD TYPE ARTERIAL; HCO3-(ACT) 15.6 mmoll (20.0-26.0); O2(CT) 17.7 mL/dL (15.0-23.0); O2HB 96.4 % (95.0-99.0); PCO2(98.6) 20 mmHg (35-45); PO2(98.6) 122 mmHg (60-100); SAMPLE BLOOD; SAO2 98.3 % (95.0-100.0); THB 12.9 g/dL (11.5-17.4); pH(98.6) 7.36 (7.35-7.45)
[2019-08-21 22:20] LABS: MODALITY ROOM AIR
[2019-08-21 23:14] LABS: CALCIUM 7.4 mg/dL (8.8-10.2); CREATININE 1.1 mg/dL (0.5-0.9); MAGNESIUM 2.3 mg/dL (1.5-2.7); PHOSPHORUS 1.8 mg/dL (2.7-4.5); POTASSIUM 4.3 mmol/L (3.5-5.1)
[2019-08-22 02:27] LABS: MAGNESIUM 2.1 mg/dL (1.5-2.7); PHOSPHORUS 1.3 mg/dL (2.7-4.5)
[2019-08-22] MEDS: ZOSYN 3.375 GM in NS 50 ML IV SCH ×4 (02:37→22:01)
[2019-08-22 03:09] LABS: AGAP 17; BUN 22 mg/dL (8-22); CALCIUM 7.6 mg/dL (8.8-10.2); CHLORIDE 115 mmol/L (98-107); COSMO 303; CREATININE 0.9 mg/dL (0.5-0.9); ESTIMATED GFR > 60; GLUCOSE 187 mg/dL (70-104); POTASSIUM 3.3 mmol/L (3.5-5.1); SODIUM 148 mmol/L (136-145); TCO2 16 mmol/L (25-35)
[2019-08-22] MEDS: POTASSIUM CHLORIDE 20 MEQ/SWI 20 MEQ/100 ML IVPB IV SCH ×2 (05:11→07:14)
[2019-08-22] MEDS: NS 1,000 ML IV SCH ×4 (05:57→23:44)
[2019-08-22 06:42] LABS: AGAP 11; BUN 19 mg/dL (8-22); CHLORIDE 117 mmol/L (98-107); COSMO 300; CREATININE 0.9 mg/dL (0.5-0.9); ESTIMATED GFR > 60; GLUCOSE 130 mg/dL (70-104); POTASSIUM 3.2 mmol/L (3.5-5.1); SODIUM 149 mmol/L (136-145); TCO2 21 mmol/L (25-35)
[2019-08-22 07:28] LABS: MAGNESIUM 2.4 mg/dL (1.5-2.7); PHOSPHORUS 1.4 mg/dL (2.7-4.5)
[2019-08-22] MEDS: SODIUM BICARBONATE 8.4% 100 MEQ in D5W 1,000 ML IV SCH (09:26)
[2019-08-22] MEDS: CYMBALTA PO SCH (09:26)
[2019-08-22 10:41] LABS: MAGNESIUM 2.2 mg/dL (1.5-2.7); PHOSPHORUS 1.2 mg/dL (2.7-4.5)
[2019-08-22 10:52] LABS: AGAP 13; BUN 18 mg/dL (8-22); CHLORIDE 115 mmol/L (98-107); COSMO 299; CREATININE 0.8 mg/dL (0.5-0.9); ESTIMATED GFR > 60; GLUCOSE 120 mg/dL (70-104); POTASSIUM 3.8 mmol/L (3.5-5.1); SODIUM 149 mmol/L (136-145); TCO2 21 mmol/L (25-35)
[2019-08-22] MEDS: HUMULIN R SUBQ SCH ×3 (11:46→20:57)
--- NOTE | 2019-08-22 15:52 | PROGRESS NOTE ---
DATE: 08/22/2019 SUBJECTIVE: Ms. Murillo is feeling better. She is awake and alert. Her sister, her cousin, and her mother were there. She denies any pain. She has not had any fever. OBJECTIVE: Vital signs: Temperature is 98.2 degrees, pulse 80, respirations 16, blood pressure 129/76. HEENT: Pupils are equal and round. Lungs: Clear in all lung carrizales. Cardiovascular: Regular rhythm and rate without murmur or S3. Abdomen: Soft. Skin: Warm and dry. Urine output is 5.7 L. Blood sugar 221, 101, 232. IMAGING: Chest x-ray: Negative exam. Lungs are well expanded. Heart is not enlarged. Vessels were not distended. ASSESSMENT AND PLAN: Diabetic ketoacidosis, improving. She is able to eat. Her white count was 28,000 yesterday. I do not see any evidence of bacterial infection. Bicarb has come up to 21, creatinine is 0.8. Sugars have dropped nicely. So we are going to put her on a diabetic diet and I will have dietitian talk to her. The family is concerned. She is really not eating much at all at home and I am going to make sure she gets on a home regimen that she can tolerate. If no sign of infection, I will stop her antibiotics tomorrow. cc: Gabriel Burgos MD
[2019-08-22] MEDS: VANCOMYCIN 1 GM/NS 1 GM/250 ML IVPB IV SCH (16:27)
--- NOTE | 2019-08-22 17:11 | EKG Report ---
Test Performed on : 08/22/2019 06:14:16 AM Test Reason : dka Blood Pressure : / mmHG Vent. Rate : 095 BPM Atrial Rate : 095 BPM P-R Int : 110 ms QRS Dur : 120 ms QT Int : 374 ms P-R-T Axes : 080 091 073 degrees QTc Int : 469 ms Sinus rhythm. with short ME Right bundle branch block Abnormal ECG When compared with ECG of 21-AUG-2019 11:02, (Unconfirmed) No significant change was found Confirmed by Luan Hess MD ([id number]) on 08/24/2019 9:41:55 PM
[2019-08-23] MEDS: ZOSYN 3.375 GM in NS 50 ML IV SCH ×4 (04:08→20:20)
[2019-08-23] MEDS: NS 1,000 ML IV SCH ×3 (05:46→20:20)
[2019-08-23] MEDS: HUMULIN R SUBQ SCH ×4 (06:31→20:21)
[2019-08-23] MEDS: CYMBALTA PO SCH (09:13)
--- NOTE | 2019-08-23 16:21 | PROGRESS NOTE ---
DATE: 08/23/2019 SUBJECTIVE: She feels much better. Her color looks better. She has remained afebrile. OBJECTIVE: Vital Signs: Temperature 99.4 degrees, pulse 75, respirations 16, blood pressure 127/79. HEENT: Pupils are equal and round. Lungs: Clear in all lung carrizales. Cardiovascular: Regular rhythm and rate without murmur or S3. Urine output is 2900 mL. Blood sugar 101, 232, 116, 256. Her chest x-ray from the was unremarkable. ASSESSMENT: Diabetic ketoacidosis. PLAN: This is a little frustrating because she really was trying to follow her insulin regimen and was taking her insulin as directed. I do not see any sign of infection. The acidosis seems to have improved and she seems to have turned around. I had her on broad-spectrum antibiotic. I do not see evidence of urinary tract or pulmonary infection. Blood sugars appear to be in acceptable range and she is eating, so we will put her on sliding scale and pattern sugars. I am going to watch her another 48 hours and make sure she is stable with this. We will start physical therapy. I think we can move her to the floor. REVIEW OF ORDERS: She is on Cymbalta 90 mg a day. I did supplement her magnesium. She is on vancomycin and Zosyn. cc: Gabriel Burgos MD
[2019-08-23] MEDS: VANCOMYCIN 1 GM/NS 1 GM/250 ML IVPB IV SCH (17:14)
[2019-08-24] MEDS: ZOSYN 3.375 GM in NS 50 ML IV SCH ×4 (03:51→21:56)
[2019-08-24] MEDS: NS 1,000 ML IV SCH ×2 (03:51→11:53)
[2019-08-24] MEDS: HUMULIN R SUBQ SCH ×4 (06:26→22:05)
[2019-08-24] MEDS: CYMBALTA PO SCH (08:36)
[2019-08-24 12:10] LABS: BASO# 0.05 X1000 (0.0-0.2); BASO% 0.5 % (0.0-0.8); EOS# 0.17 X1000 (0.0-0.7); EOS% 1.8 % (0.0-10.0); HEMATOCRIT 37.2 % (37.0-47.0); HEMOGLOBIN 12.4 g/dL (12.0-16.0); IMM GRAN# 0.05 X1000 (0.0-0.04); IMM GRAN% 0.5 % (0.0-0.5); LYMPH# 3.84 X1000 (1.2-3.4); LYMPH% 41.3 % (20.5-51.1); MCH 30.4 PG (27-31); MCHC 33.3 g/dL (33-37); MCV 91.2 FL (81-99); MONO# 0.73 X1000 (0.11-0.59); MONO% 7.9 % (1.7-9.3); MPV 9.8 FL (7.4-10.4); NEUT# 4.45 X1000 (1.4-6.5); PLT 167 X1000 (130-400); RBC 4.08 XMIL (4.2-5.4); RDW 13.9 % (11.5-14.5); WBC 9.29 X1000 (4.8-10.8)
[2019-08-24 12:26] LABS: AGAP 14; ALB/GLOB RATIO 1.5; ALBUMIN 2.9 g/dL (3.5-5.0); ALKALINE PHOSPHATASE 81 U/L (32-104); BUN 12 mg/dL (8-22); CALCIUM 8.1 mg/dL (8.8-10.2); CHLORIDE 105 mmol/L (98-107); COSMO 287; CREATININE 0.6 mg/dL (0.5-0.9); ESTIMATED GFR > 60; GLUCOSE 246 mg/dL (70-104); GOT 19 U/L (10-30); GPT 16 U/L (10-36); MAGNESIUM 2.1 mg/dL (1.5-2.7); PHOSPHORUS 2.3 mg/dL (2.7-4.5); POTASSIUM 3.3 mmol/L (3.5-5.1); SODIUM 140 mmol/L (136-145); TCO2 21 mmol/L (25-35); TOTAL PROTEIN 4.9 g/dL (6.3-8.3)
[2019-08-24] MEDS ORDERED: LANTUS INSULIN SUBQ ONE (13:22)
[2019-08-24] MEDS ORDERED: POTASSIUM PHOSPHATE 15 MMOL in NS 250 ML IV ONE (15:50)
--- NOTE | 2019-08-24 16:47 | PROGRESS NOTE ---
DATE: 08/24/2019 SUBJECTIVE: This patient is feeling better. She is tolerating p.o. Her blood sugar is still above 200. I will put her back on her home medication with insulin glargine/Toujeo SoloSTAR, 38 units subcu. I will give her a new dose today to see how she does. Continue with sliding scale insulin as well. On my physical exam, her abdomen is tender at the level of the right upper quadrant. I will check with an ultrasound of her abdomen. OBJECTIVE: Vital Signs: Temperature 98.5 degrees, pulse 71, respiratory rate 20, blood pressure 150/86. Oxygen saturation 97% on room air. HEENT: Head normocephalic. No trauma. PERRLA. Neck: Supple. No JVD. No masses. Central trachea. Chest: Clear to auscultation. No wheezing. No rales. Abdomen: Soft. Tenderness to palpation at the level of the epigastric and right upper quadrant. No signs of peritoneal irritation. Positive bowel sounds. Extremities: No edema. No clubbing, no cyanosis. Neurological: The patient is awake, alert. She is oriented x3. No focal deficits. LABORATORY: WBC 9.2, hemoglobin 12.4, hematocrit 37.2, platelets 167,000. Sodium 140, potassium 3.3, chloride 105, bicarbonate 21, BUN 12, creatinine 0.6. Glucose 246, calcium 8.1, phosphorus 2.3, magnesium 2.1, and albumin is 2.9. ASSESSMENT AND PLAN: 1. Diabetic ketoacidosis, resolved. I will ask for a new hemoglobin A1c. As per the family, her last hemoglobin A1c a few weeks ago was 8, we will corroborate this information. I will put this patient back on her insulin glargine, I will continue with sliding scale insulin. I will check an abdominal ultrasound to rule out any problem and monitor. 2. Abdominal pain, mostly at the level of the right upper quadrant. Aware. I will ask for an abdominal ultrasound. I do not think this is related to the gallbladder since the LFTs are completely normal, but is quite tender in that place. 3. She has been placed on antibiotics which I will continue for 1 more day. Her white blood cell count upon admission was high at 28.9, but it has been high before in previous admissions. Actually last month, 07/12/2019, her white blood cell count was 26. It looks like she was also admitted due to diabetic ketoacidosis, so I will monitor this patient closely. She also had a abdominal and pelvis CT scan on 07/12/2019 that did not show any problems, but that CT scan was done without contrast. She is not having fever for the past 3 days, but on 08/21/2019, she had some temperatures at 100.1 to 100.2. 4. Electrolyte imbalance including hypophosphatemia and hypokalemia. I will replace both. 5. Hypernatremia resolved. 6. Acute kidney injury, resolved. I will remove the Flanagan catheter and stop the fluids at this point. cc: Richie Schafer MD
[2019-08-25] MEDS: ZOSYN 3.375 GM in NS 50 ML IV SCH ×4 (02:59→21:31)
[2019-08-25] MEDS: D50W SYRINGE IV PRN (05:57)
[2019-08-25] MEDS: HUMULIN R SUBQ SCH ×4 (07:16→22:19)
--- NOTE | 2019-08-25 08:09 | Diag Imaging Result Doc PS360 ---
EXAM: US ABDOMEN-COMPLETE 08/25/2019 HISTORY: R/O gallbladder disease TECHNIQUE: Abdominal ultrasound COMMENT: The pancreas is normal in appearance. The visualized portions of the aorta and inferior vena cava are within normal limits. There is a right pleural effusion with apparent atelectasis in the left lower lobe. The liver is unremarkable. The gallbladder is contracted. There are no apparent stones but there is a positive sonographic Talley sign. The common bile duct is not distended measuring less than 4 mm. There is antegrade flow in the portal vein. The kidneys are without evidence of hydronephrosis or mass. The spleen is not enlarged. There is a left pleural effusion with apparent atelectasis in the lower lobe. IMPRESSION: Positive sonographic Talley sign with contracted gallbladder. Bilateral pleural effusions and lower lobe atelectasis. This was not present on the previous CT of 07/12/2019 or on the portable radiograph of 08/21/2019. Otherwise no evidence of acute disease. Electronically signed by Jesse Robertson 08/25/2019 8:07 AM
[2019-08-25] MEDS: CYMBALTA PO SCH (09:58)
[2019-08-25] MEDS: LANTUS INSULIN SUBQ SCH (11:01)
[2019-08-25 11:23] LABS: BASO# 0.05 X1000 (0.0-0.2); BASO% 0.5 % (0.0-0.8); EOS% 3.2 % (0.0-10.0); HEMATOCRIT 38.9 % (37.0-47.0); HEMOGLOBIN 12.9 g/dL (12.0-16.0); IMM GRAN# 0.05 X1000 (0.0-0.04); IMM GRAN% 0.5 % (0.0-0.5); LYMPH# 3.21 X1000 (1.2-3.4); LYMPH% 33.9 % (20.5-51.1); MCH 30.1 PG (27-31); MCHC 33.2 g/dL (33-37); MCV 90.9 FL (81-99); MONO# 0.86 X1000 (0.11-0.59); MONO% 9.1 % (1.7-9.3); NEUT# 5.01 X1000 (1.4-6.5); NEUT% 52.8 % (42.2-75.2); PLT 190 X1000 (130-400); RBC 4.28 XMIL (4.2-5.4); RDW 13.8 % (11.5-14.5); WBC 9.48 X1000 (4.8-10.8)
[2019-08-25 12:36] LABS: HEMOGLOBIN A1C 7.9 % (4.8-6.0)
[2019-08-25 13:11] LABS: AGAP 13; BUN 8 mg/dL (8-22); CALCIUM 8.3 mg/dL (8.8-10.2); CHLORIDE 107 mmol/L (98-107); COSMO 287; CREATININE 0.6 mg/dL (0.5-0.9); ESTIMATED GFR > 60; GLUCOSE 132 mg/dL (70-104); MAGNESIUM 1.8 mg/dL (1.5-2.7); PHOSPHORUS 2.9 mg/dL (2.7-4.5); POTASSIUM 3.1 mmol/L (3.5-5.1); SODIUM 144 mmol/L (136-145); TCO2 24 mmol/L (25-35)
--- NOTE | 2019-08-25 13:14 | CONSULTATION ---
DATE OF CONSULTATION: 08/25/2019 HISTORY: Ms. Phani Murillo is a 43-year-old white female who was admitted with diabetic ketoacidosis. She also has a history of fibromyalgia and MS. She was admitted through our emergency department on 08/21/2019 with complaints of altered mental status and elevated blood sugar. We were asked to see her because she has developed right upper quadrant pain, and an ultrasound performed suggested a contracted gallbladder but her liver function tests were normal. On her admission, her white blood cell count was elevated but now it is normal. She has been receiving IV antibiotics. PAST MEDICAL HISTORY: Insulin-dependent diabetes mellitus. Fibromyalgia. Multiple sclerosis. PAST SURGICAL HISTORY: She has had orthopedic surgery. MEDICATIONS: 1. Vitamin D. 2. Focalin. 3. Cymbalta. 4. Jardiance. 5. [place] Plus. ALLERGIES: Ceclor. SOCIAL HISTORY: Her was present at the bedside. PHYSICAL EXAMINATION: On exam, she is 129 pounds, heart rate 71, blood pressure 141/85, and O2 saturation 97%. She is afebrile. General: She is awake and cooperative. She is in no acute distress. HEENT: No jaundice. No oral lesions. Lymphatic: No cervical or supraclavicular lymphadenopathy. Heart: Regular rate. Lungs: Clear to auscultation and percussion bilaterally. Abdomen: Soft. She is tender to palpation in the right upper quadrant. There is no palpable mass. No costovertebral tenderness. Rectal: Exam was not performed. Extremities: She does have palpable peripheral pulses. No peripheral edema. Neurological: She is alert and oriented x3 and appropriate. DIAGNOSTIC: An abdominal ultrasound was performed today, and they said she had a positive sonographic Talley sign. She does have a contracted gallbladder. There were no apparent stones and the common bile duct was not distended at 4 mm. Her white blood cell count is normal. Liver function tests are normal. IMPRESSION: Right upper quadrant pain of unknown etiology. I think she has improved clinically since she has been hospitalized on IV antibiotics and treatment for her DKA. She is NPO at this point but, it does not appear that she has acute cholecystitis or even stones in her gallbladder. I think we can begin feeding her and see how she tolerates that if there remains a question of her gallbladder HIDA scan could not be useful. cc: Yvette Elias MD
[2019-08-25] MEDS ORDERED: KLOR-CON PO ONE (13:26)
--- NOTE | 2019-08-25 14:20 | PROGRESS NOTE ---
DATE: 08/25/2019 SUBJECTIVE: The patient seems to be feeling better. She had a low-grade temperature today, also her blood sugar dropped to 31 today in the morning at 5:39 a.m. Yesterday, I gave her the home dose of insulin, but I do believe this is too much for her. The , who is at the bedside, states that she has been having hypoglycemia mostly in the morning. So, I will keep an eye on her. I will decrease the dose of the insulin from 38 to 20 to see how she does. I will replace the potassium. Also I will ask the Surgery department to evaluate this patient since she has been having right upper quadrant pain. OBJECTIVE: Vital Signs: Temperature 98.3 degrees, pulse 71, respiratory rate 18, blood pressure 141/85, oxygen saturation 97% on room air. HEENT: Head, normocephalic. No trauma. PERRLA. Neck: Supple. No JVD. No masses. Central trachea. Chest: Clear to auscultation. No wheezing. No rales. Abdomen: Soft. Tender to palpation at the level of the right upper quadrant. No signs of peritoneal irritation. Positive bowel sounds. Extremities: No edema no clubbing, no cyanosis. Neurological: The patient is awake. She is alert. She is oriented x3. No focal deficits. LABORATORY: WBC 9.4, hemoglobin 12.9, hematocrit 38.9, platelets 190,000, sodium 141, potassium 3.1, chloride 107, bicarbonate 24, BUN 8, creatinine 0.6, glucose 132, calcium 8.3, hemoglobin A1c 7.9, and phosphorus 2.9, magnesium 1.8. ASSESSMENT AND PLAN: 1. Diabetic ketoacidosis, resolved. Hemoglobin A1c 7.9, which tells me that her blood sugar at home has been stable, but as per the , she has been having episodes of hypoglycemia in the morning almost every day. So, I will decrease the dose of the insulin from 38 units to 20 units to see how she does. 2. Abdominal pain, right upper quadrant. Surgery department evaluated this patient. Ultrasound did not show any obstruction or stones. LFTs are normal, but she is tempering kiln tender to palpation. 3. She has been placed on antibiotics and upon admission, her white blood cell count was 28 and now is 9. I do not see any source of infection, but I believe I will keep them for a little bit. I need to make sure that she does not have any abdominal problem and she had a low-grade temperature today. 4. Electrolyte imbalance, better. Continue to monitor. 5. Hypernatremia, resolved. 6. Acute kidney injury, resolved. cc: Richie Schafer MD
[2019-08-25] MEDS: ARICEPT PO SCH (21:31)
[2019-08-26] MEDS: ZOSYN 3.375 GM in NS 50 ML IV SCH ×2 (03:09→10:53)
[2019-08-26] MEDS: D50W SYRINGE IV PRN (06:33)
[2019-08-26] MEDS: HUMULIN R SUBQ SCH ×4 (07:39→20:09)
[2019-08-26 08:59] LABS: AGAP 10; BUN 8 mg/dL (8-22); CALCIUM 8.3 mg/dL (8.8-10.2); CHLORIDE 103 mmol/L (98-107); COSMO 282; CREATININE 0.6 mg/dL (0.5-0.9); ESTIMATED GFR > 60; GLUCOSE 169 mg/dL (70-104); POTASSIUM 3.4 mmol/L (3.5-5.1); SODIUM 140 mmol/L (136-145); TCO2 27 mmol/L (25-35)
[2019-08-26] MEDS: CYMBALTA PO SCH (10:53)
[2019-08-26] MEDS: LANTUS INSULIN SUBQ SCH (10:57)
[2019-08-26] MEDS: LEVAQUIN 750 MG/D5W 750 MG/150 ML IVPB IV SCH (12:44)
[2019-08-26] MEDS ORDERED: KLOR-CON PO ONE (14:06)
--- NOTE | 2019-08-26 14:29 | PROGRESS NOTE ---
DATE: 08/27/2019 SUBJECTIVE: The patient seems to be stable. She had an episode of hypoglycemia during the night, so I will stop the Lantus and I will put this patient on insulin 70/30. On the other hand, we have a positive culture that showed Haemophilus parainfluenza. I will repeat the blood culture today and I will wait a couple days to see how she does. I have switched the treatment to levofloxacin which it is sensitive. OBJECTIVE: Vital signs: Temperature 98.4 degrees, pulse 80, respiratory rate 14, blood pressure 148/82, oxygen saturation 96 on room air. HEENT: Head normocephalic. No trauma. PERRLA. Neck: Supple. No JVD. No masses. Central trachea. Chest: Clear to auscultation. No wheezing. No rales. Abdomen: Soft. Right upper quadrant tenderness. No signs of peritoneal irritation. Positive bowel sounds. Extremities: No edema. No clubbing. No cyanosis. Neurological: Patient is awake. She is alert. She is oriented x3. No focal deficits. LABORATORY: Sodium 140, potassium 3.4, chloride 103, bicarbonate 27, BUN 8, creatinine 0.6, glucose 169, calcium 8.3. ASSESSMENT AND PLAN: 1. Diabetic ketoacidosis, resolved. Hemoglobin A1c is 7.9. 2. Diabetes with a hemoglobin A1c of 7.9. She has been getting Lantus and I actually decreased her dose of Lantus to 20 yesterday and even though it was basically half of her dose, she still is having low blood sugar during the night. So I will stop this treatment and I will put her on 70/30 insulin to see how she does. On the other hand, I will add metformin to her medications. 3. Abdominal pain, right upper quadrant. Surgery department already evaluated this patient. Ultrasound did not show any stones or problems, so we will monitor for now. I will get an x- ray in the morning to rule out severe constipation or any other problem. 4. Bacteremia. She does have a positive blood culture that showed Haemophilus parainfluenza 1 out of 2. She has been getting Zosyn but this bacteria is also sensitive to levofloxacin, so I will change it. If in 2 days this blood culture is negative, I will send her home with levofloxacin to complete 14 days of treatment. 5. Electrolyte imbalance including hypokalemia. I will replace it. 6. Acute kidney injury, resolved. cc: Richie Schafer MD
[2019-08-26] MEDS ORDERED: INSULIN PEN NEEDLES ONE (15:45)
[2019-08-26] MEDS: HUMULIN 70/30 SUBQ SCH ×2 (16:55→21:05)
[2019-08-26] MEDS ORDERED: NICODERM PATCH TD PRN (17:09)
[2019-08-26] MEDS: ARICEPT PO SCH (20:09)
[2019-08-27] MEDS: HUMULIN R SUBQ SCH ×5 (06:27→21:02)
[2019-08-27 08:01] LABS: AGAP 12; BUN 8 mg/dL (8-22); CALCIUM 8.5 mg/dL (8.8-10.2); CHLORIDE 103 mmol/L (98-107); COSMO 293; CREATININE 0.5 mg/dL (0.5-0.9); ESTIMATED GFR > 60; GLUCOSE 299 mg/dL (70-104); POTASSIUM 4.5 mmol/L (3.5-5.1); SODIUM 142 mmol/L (136-145); TCO2 27 mmol/L (25-35)
--- NOTE | 2019-08-27 08:38 | Diag Imaging Result Doc PS360 ---
EXAM: ABDOMEN FLAT/UPRIGHT HISTORY: sbo TECHNIQUE: Two views two views COMPARISON: None. FINDINGS: There is stool throughout the colon. No bowel obstruction. No organomegaly. No foreign body. There are pelvic phleboliths. Apparent granuloma in the liver and spleen. IMPRESSION: Moderate to prominent constipation, but no bowel obstruction Electronically signed by Teddy Calderon 08/27/2019 8:35 AM
[2019-08-27] MEDS ORDERED: HUMULIN 70/30 SUBQ SCH ×3 (09:00→16:00)
[2019-08-27] MEDS: GLUCOPHAGE PO SCH (09:18)
[2019-08-27] MEDS: CYMBALTA PO SCH (09:18)
[2019-08-27] MEDS: LACTULOSE PO SCH ×2 (10:09→20:32)
[2019-08-27] MEDS: LEVAQUIN 750 MG/D5W 750 MG/150 ML IVPB IV SCH (11:25)
--- NOTE | 2019-08-27 16:58 | PROGRESS NOTE ---
DATE: 08/27/2019 SUBJECTIVE: The patient seems to be more stable. Her abdominal pain is getting better. I switched the insulin from Lantus to 70/30, but she has been having hyperglycemia. I will readjust the dose depending on the sliding scale insulin. Her blood culture has been negative so far. I will continue with levofloxacin. OBJECTIVE: Vital Signs: Temperature 98.3 degrees, pulse 108, respiratory rate 20, blood pressure 141/84, oxygen saturation 94% on room air. HEENT: Head normocephalic, no trauma. PERRLA. Neck: Supple. No JVD. No masses. Central trachea. Chest: Clear to auscultation. No wheezing. No rales. Abdomen: Soft. Right upper quadrant tenderness, but no signs of peritoneal irritation. Positive bowel sounds. Extremities: No edema, no clubbing, no cyanosis. Neurological: Patient is awake and alert. She is oriented x3. No focal deficits. LABORATORY: Sodium 142, potassium 4.5, chloride 103, bicarbonate 27, BUN 8, creatinine 0.5, glucose 299, calcium 8.5. ASSESSMENT AND PLAN: 1. Diabetic ketoacidosis, resolved. Hemoglobin A1c 7.9. 2. Diabetes with hemoglobin A1c of 7.9. She has been getting Lantus previously, but it has been stopped because of hypoglycemia, mostly during the night to the 40s. So I have started this patient on 70/30 insulin since yesterday and she is hyperglycemic. I will readjust the doses slowly. I added also metformin to her medications. 3. Abdominal pain, right upper quadrant. Surgery already evaluated this patient. X-rays showed severe constipation. I put this patient on lactulose twice a day. 4. Bacteremia. We have a positive culture that showed Haemophilus parainfluenza 1/2. She has been getting Zosyn but it has been changed to levofloxacin, which is sensitive as well, so I will discharge this patient with levofloxacin p.o. to complete 14 days of treatment. 5. Electrolyte imbalance including hypokalemia, better. 6. Acute kidney injury, resolved. cc: Richie Schafer MD
[2019-08-27] MEDS: ARICEPT PO SCH (20:32)
[2019-08-28] MEDS: HUMULIN R SUBQ SCH (06:12)
[2019-08-28] MEDS ORDERED: HUMULIN 70/30 SUBQ SCH ×2 (07:00)
[2019-08-28 07:40] VITALS: BP 125/81
[2019-08-28 07:59] LABS: BASO# 0.06 X1000 (0.0-0.2); BASO% 0.6 % (0.0-0.8); EOS# 0.31 X1000 (0.0-0.7); EOS% 2.9 % (0.0-10.0); HEMATOCRIT 37.2 % (37.0-47.0); HEMOGLOBIN 12.1 g/dL (12.0-16.0); IMM GRAN# 0.14 X1000 (0.0-0.04); IMM GRAN% 1.3 % (0.0-0.5); LYMPH# 4.27 X1000 (1.2-3.4); MCHC 32.5 g/dL (33-37); MCV 92.1 FL (81-99); MONO# 1.03 X1000 (0.11-0.59); MONO% 9.7 % (1.7-9.3); MPV 9.9 FL (7.4-10.4); NEUT# 4.86 X1000 (1.4-6.5); NEUT% 45.5 % (42.2-75.2); PLT 280 X1000 (130-400); RBC 4.04 XMIL (4.2-5.4); RDW 13.8 % (11.5-14.5); WBC 10.67 X1000 (4.8-10.8)
[2019-08-28 08:27] LABS: AGAP 11; BUN 9 mg/dL (8-22); CALCIUM 8.4 mg/dL (8.8-10.2); CHLORIDE 101 mmol/L (98-107); COSMO 286; CREATININE 0.6 mg/dL (0.5-0.9); ESTIMATED GFR > 60; GLUCOSE 233 mg/dL (70-104); POTASSIUM 3.8 mmol/L (3.5-5.1); SODIUM 140 mmol/L (136-145); TCO2 28 mmol/L (25-35)
[2019-08-28] MEDS: CYMBALTA PO SCH (08:54)
[2019-08-28] MEDS: LACTULOSE PO SCH (08:55)
[2019-08-28] MEDS: GLUCOPHAGE PO SCH (08:55)
--- NOTE | 2019-08-28 19:54 | DISCHARGE SUMMARY ---
ADMISSION DATE: 08/21/2019 DISCHARGE DATE: 08/28/2019 DISCHARGE DIAGNOSES: 1. Diabetic ketoacidosis, resolved. 2. Diabetes with a hemoglobin A1c of 7.9. 3. Abdominal pain, right upper quadrant, evaluated by Surgery Department. 4. Severe constipation. 5. Bacteremia with a positive culture, 06/24, that showed Haemophilus parainfluenza. 6. Electrolyte imbalance. 7. Acute kidney injury, resolved. PROCEDURES PERFORMED: 1. Chest x-ray dated 08/21/2019. Impression: Negative exam. 2. Abdomen ultrasound dated 08/25/2019. Impression: Positive sonographic Talley sign with contracted gallbladder. Bilateral pleural effusion and lower lobe atelectasis. This was not present on the previous CT on 08/12/2019. 3. Abdomen x-ray dated 08/27/2019. Moderate to prominent constipation but no bowel obstruction. HOSPITAL COURSE: A 43-year-old female admitted on 08/21/2019. She was discharged prior to this hospitalization for DKA. It looks like she has been using her insulin and checking her blood sugar at home. As per the , they have been using Lantus 38 units, and she has been having hypoglycemia, mostly during the night, below 40. She presented again to the emergency department due to altered mental status and elevated blood sugar. She was admitted due to diabetic ketoacidosis. She was transferred to the ICU for DKA protocol. She started to feel better. She was transferred to the medical floor and we received a positive blood culture 06/24 that showed Haemophilus parainfluenza. That was done on 08/21/2019. Then we repeated the blood culture again on 08/26/2019 and it has been negative for 48 hours. She has been receiving levofloxacin and she seems to be tolerating this procedure well. Her white blood cell count is normal, but initially it was 28.9. Her blood sugar seems to be better controlled but I stopped the Lantus because of the hypoglycemia during the night, even though I decreased the dose, basically by half from 38 to 20. I decided to put this patient on insulin 70/30 and I have been adjusting her dose accordingly. She will be discharged home today. She is feeling fine. Because of her right upper quadrant pain, I asked for an echocardiogram that did not show any bladder problem and the Surgery Department already evaluated this patient. This pain also has been getting better after having some bowel movements. Abdominal x-ray showed constipation. I put this patient on lactulose twice a day and it seems to be working. She seems to be stable, back to her baseline. She will be discharged and follow up with her primary care doctor in 1 week. Also, I already discussed the case briefly with the Infectious Disease nurse practitioner and she will follow this patient up as an outpatient. He will re-evaluate this patient at Dr. Domingo Castañeda' office. This instruction has been given to the and the patient at the same time and they seem to understand. I will complete 14 days of treatment with levofloxacin p.o. There is no new murmur. There is no more bacteremia. I instructed the patient and the family member at the bedside, her , to take note of the blood sugar before meals and before bed, and take it to her primary care doctor in a week so they can readjust the dose. On the other hand, I told them to call the hospital and ask for me if they need my help with the insulin treatment. PHYSICAL EXAMINATION: Vital Signs: Temperature 98.2 degrees, pulse 99, respiratory rate 16, blood pressure 125/81, oxygen saturation 98 on room air. HEENT: Head normocephalic, no trauma, PERRLA. Neck is supple. No JVD. No masses. Central trachea. Chest: Clear to auscultation. No wheezing. No rales. Abdomen: Soft, some tenderness to palpation at the level of the right upper quadrant. Positive bowel sounds. No signs of peritoneal irritation. Extremities: No edema no clubbing, no cyanosis. Neurological: The patient is awake, alert, and oriented x3. No focal deficit. LABORATORY: WBC 10.6, hemoglobin 12.1, hematocrit 37.2, platelets 280,000. Sodium 140, potassium 3.8, chloride 101, bicarbonate 28, BUN 9, creatinine 0.6, glucose 233, calcium 8.. DISCHARGE MEDICATIONS: Levofloxacin 750 mg p.o. daily for 12 days, metformin 500 mg p.o. with breakfast, lactulose 30 mL p.o. b.i.d. to try to have 2 bowel movements per day. Insulin 70/30, 25 units before breakfast and 12 units before dinner, [place] 1 tablet p.o. q.12 hours as needed, Jardiance 25 mg p.o. q.a.m., Cymbalta 90 mg p.o. daily, donepezil 5 mg p.o. at bedtime, Focalin 10 mg p.o. b.i.d. and vitamin D3 5000 units p.o. daily. TIME SPENT: Time discharging this patient, 35 minutes. cc: Richie Schafer MD
== END 2019-08-28 11:22 | disposition home or self-care (01) | DRG 637 ==
LOC: ED 09:46 → SUATTDRO 13:09 → ICU 13:09 → 3N 08-23 18:51
PROVIDERS: ATTEND Internal Medicine